=== PATIENT | female | born 1975 | race Caucasian/White ===

== ENCOUNTER 2020-04-10 07:06 | Outpatient (CLI) | payer BC, SELFPAY ==
[2020-04-10 07:56] LABS: Partial Thromboplastin Time 28.4 SECONDS (22.3-36.8)
[2020-04-10 08:12] LABS: Alanine Aminotransferase 21 U/L (4-35); Albumin Level 3.9 g/dL (3.5-5.1); Alkaline Phosphatase 78 U/L (38-126); Amylase 62 U/L (30-110); Anion Gap 8 mmol/L (8-16); Aspartate Amino Transferase 23 U/L (14-36); Bilirubin,Total 0.5 mg/dL (0.2-1.3); Blood Urea Nitrogen 12 mg/dL (7-17); Calcium 9.2 mg/dL (8.4-10.2); Carbon Dioxide 25 mmol/L (22-30); Chloride 106 mmol/L (98-107); Estimated Glomerular Filt Rate > 60; Glucose 91 mg/dL (65-105); Lipase 72 U/L (23-300); Potassium 3.9 mmol/L (3.4-5.0); Sodium 139 mmol/L (137-145)
== END 2020-04-10 07:07 | disposition home or self-care (01) ==
PROVIDERS: PCP Family Medicine; Visit Provider Surgery
DX: Z01.818 Encounter for other preprocedural examination (principal); K80.10 Calculus of gallbladder with chronic cholecystitis without obstruction
CPT/HCPCS: 36415; 80053; 82150; 82248; 83690; 85730; 86850; 86880; 86900; 86901; 86902; 86922

== ENCOUNTER 2020-04-13 02:03 | Day surgery (SDC) | payer BC, SELFPAY ==
[2020-04-06 11:24] VITALS: BMI 34.8
--- NOTE | 2020-04-12 10:37 | WPDANESEPPF ---
Anes - Initial Pre Proc Eval Procedure: Operation Date: 04/13/20 12:00 Proposed Procedures p Laparoscopic Cholecystectomy With Intraoperative Cholangiogram - Dre Tapia MD Date/Time: 04/12/20 10:37 Surgeon: Dre Tapia MD Pre Op Diagnosis: Choledolcholithiasis With Chronic Cholecystitis Patient Data Age: 44 Gender: F Height: 1.68 m Weight: 98 kg Allergies Allergy/AdvReac Type Severity Reaction Status Date / Time monosodium glutamate Allergy Mild Dizziness Verified 04/06/20 11:20 shellfish derived Allergy Mild Swelling Verified 04/06/20 11:20 of Lip/Tongue/Throat Sulfa (Sulfonamide Allergy Mild Palpitation Verified 04/06/20 11:20 Antibiotics) s sulfamethoxazole Allergy Mild palpitation Verified 04/06/20 11:20 [From Bactrim] s trimethoprim [From Bactrim] Allergy Mild palpitation Verified 04/06/20 11:20 s soy AdvReac Mild Dizziness Verified 04/06/20 11:20 Home Medications Medication Instructions Recorded Confirmed Type albuterol sulfate 2 puff INHALATION QID PRN #8 gm 02/22/19 04/06/20 Rx levothyroxine 88 mcg PO QAM 02/22/19 04/06/20 History Patient hx anesthesia problems: none Family hx anesthesia problems: none PMFSH Past Medical History Medical History Asthma History of blood transfusion Thyroid disease Surgical History Surgical History H/O pelvic surgery History of x2 History of colonoscopy History of ERCP Family History Family History Father Hypertension Hypothyroidism Diabetes mellitus Lung cancer Mother Heart disease Sibling Hyperthyroidism Other Diabetes mellitus Heart disease Cancer Social History Social History Smoking status: Never smoker Alcohol intake: never Alcohol use details: SOCIAL DRINKER IN PAST Substance use: never Living arrangements: with family Additional living arrangements comments: AND CHILDREN 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 Gender identity (if verbalized by the patient): Female Spiritual care concerns: No Anes - Eval Final PreProcedure Day of Procedure 04/12/20 10:37 Patient weight: obese Heart: regular rate and rhythm Lungs: clear to auscultation and normal air movement Airway: Mallampati scale class II Neurological: alert and oriented Last oral intake: >/= 8 hours ASA classification: III Emergent: no Anesthetic plan: proceed Anesthesia type and monitoring: general ETT and standard monitoring Informed Consent: The patient's anesthetic plan and its attendant risks and benefits were discussed with the patient/family/POA. Questions were solicited and answers provided to the satisfaction of the patient/family/POA.
[2020-04-13] VITALS (8 sets, daily range): BP systolic 105–115; BP diastolic 50–70; PULSE 45–79; RESP 12–18; TEMP 36–36.7; O2SAT 98–100; BMI 33.4
--- NOTE | ~2020-04-13 | XR_ITS ---
EXAMINATION: XR cholangiogram surg 1st inj DATE: 04/13/2020 13:02 INDICATION: Cholelithiasis. TECHNIQUE: 187 fluoroscopic images of the right upper quadrant were obtained during intraoperative ch olangiography performed by the surgeon. I was not present in the operating room. Fluoroscopy exposure time was 28 seconds. COMPARISON: CT abdomen and pelvis 08/08/2013 FINDINGS: There is a catheter in the cystic duct. The common bile duct is normal in caliber. The comm on hepatic duct is not opacified. Contrast passes to the duodenum. No choledocholithiasis. IMPRESSION: 1. No choledocholithiasis. Reviewed, dictated and finalized at location A. G[employer] IMPRESSION: 1. No choledocholithiasis.
--- NOTE | 2020-04-13 07:54 | WPDHPUPDATE1 ---
History and Physical Update Update Date/Time: 04/13/20 07:54 History and Physical has been reviewed, including an updated exam of the patient. There are NO changes in the patient's condition. Risks, benefits, and alternatives have been discussed and questions answered. Patient agrees to proceed with procedure.
[2020-04-13] MEDS: KETOROLAC 15 MG/ML VIAL (*BKC) IV PUSH (11:16)
[2020-04-13] MEDS: ACETAMINOPHEN 500 MG TABLET 1000 MG PO (11:16)
[2020-04-13] MEDS: LACTATED RINGERS 1,000 ML 30 ML IV CONT (11:17)
[2020-04-13 11:30] LABS: Amylase 60 U/L (30-110)
[2020-04-13] MEDS: ceFAZolin 2 GM/D5W 50 ML 2 GM/50 ML BAG IVPB (11:59)
[2020-04-13] MEDS: BUPIVACAINE HCL 0.5% PF 30 ML VIAL INFILTRATE (12:32)
--- NOTE | 2020-04-13 13:03 | P.OP_ITS ---
Procedure Note - Detailed Date of procedure: 04/13/20 Pre-op diagnosis: Choledolcholithiasis With Chronic Cholecystitis Choledocholithiasis with chronic cholecystitis Post-op diagnosis: same Procedure performed: Laparoscopic cholecystectomy with intraoperative cholangiogram. Description of procedure: The patient was taken to surgery and induced into general anesthesia. The abdomen was prepped and draped. Trocars were placed in the usual fashion using 0.5% Marcaine with epinephrine and applied Medical optical trocars. A 5 millimeter camera was used. There were multiple stones in the gallbladder. The gallbladder was retracted anterosuperiorly. We exposed the cholecystohepatic triangle and dissected out the cystic duct and cystic artery.The gallbladder was dissected off the liver at its lower 3rd. Critical view was achieved. The cystic artery was securely clipped and divided. Cystic duct was dissected through most of its length. The cystic duct was clipped at the distal gallbladder. A small incision was made in the upper cystic duct with cystic duct scissors. The cholangiogram catheter was passed into the cystic duct. We then brought the C-arm fluoroscopy into the field. Intraoperative cholangiograms were done with C-arm fluoroscopy. The cholangiogram catheter would only pass into the upper most aspect of the cystic duct and there was some spillage of contrast. Because the patient had an ERCP just 3 weeks ago, this cholangiogram was marginal but sufficient. The common bile duct was well seen. There was prompt duodenal filling and no evidence of common bile duct filling defects. The radiologist, Dr. French, reviewed the cholangiogram and we discussed this via conference call in the operating room. The cholangiogram catheter was removed from the cystic duct. The cystic duct was then securely clipped and divided. The gallbladder was then dissected free of its peritoneal attachments to the liver. Once completely freed, it was placed in an Endo-Catch bag and retrieved through the 10 11 epigastric trocar. The epigastric trocar was then replaced. We reviewed the right upper quadrant and gallbladder fossa. It was irrigated and suctioned repeatedly. All looked good with no evidence of bleeding or bile leakage. All skin wounds were closed with subcuticular 4 O Monocryl skin suture. The wounds were dressed with Exofin surgical adhesive. The patient transferred to recovery in good condition. Sponge and needle counts were correct x2. Anesthesia: GETA and local (0.25% Marcaine with epinephrine) Surgeon: Dre Tapia MD Logistic Specialist: Param GARRIDO Estimated blood loss (mL): 10 Drains: No Packing: No Pathology: yes (Gallbladder) Complications: None Condition: stable Disposition: PACU Findings: Chronic inflammation and several stones in the gallbladder. Intraoperative cholangiogram was negative. No biliary ductal dilatation or liver abnormalities were appreciated.
== END 2020-04-13 15:10 | disposition home or self-care (01) ==
PROVIDERS: PCP Family Medicine; Visit Provider Surgery
PROC: 0FT44ZZ Resection of Gallbladder, Percutaneous Endoscopic Approach (ICD-10-PCS; CPT 47562; principal; 2020-04-13 12:00)
DX: K80.10 Calculus of gallbladder with chronic cholecystitis without obstruction (principal); J45.909 Unspecified asthma, uncomplicated; E03.9 Hypothyroidism, unspecified; E66.9 Obesity, unspecified; Z68.33 Body mass index [BMI] 33.0-33.9, adult
CPT/HCPCS: 47563; 36415; 74300; 82150; 88304; A9270; C1713; J0690; J1100; J1885; J2250; J2405; J2704; J2710; J3010; J7120; Q9966

== ENCOUNTER → 2021-03-22 16:29 | Outpatient (CLI) | payer BC, SELFPAY ==
--- NOTE | ~2021-03-22 | MM_ITS ---
EXAMINATION: MM screening julieth BI w amando HISTORY: Screening mammogram TECHNIQUE: Craniocaudal and mediolateral oblique 3-D tomosynthesis images were obtained and synthetic 2-D images were generated. CAD analysis was submitted and interpreted. COMPARISON: 01/29/2019, 02/14/2017 bilateral screening mammogram examinations BREAST PARENCHYMAL COMPOSITION: There are scattered areas of fibroglandular density. FINDINGS: There is no evidence of suspicious mass, calcification, or architectural distortion to sugg est malignancy in either breast. There has been no suspicious interval change. IMPRESSION: 1. No mammographic evidence of malignancy. 2. Recommend routine screening mammography in one year. BI-RADS Category 1: Negative Reviewed, dictated and finalized at location A. ING END STITCHER
== END ==
PROVIDERS: Visit Provider Obstetrics & Gynecology Gynecologic Oncology
DX: Z12.31 Encounter for screening mammogram for malignant neoplasm of breast (principal)
CPT/HCPCS: 77063; 77067

== ENCOUNTER → 2021-06-20 11:10 | Outpatient (CLI) | payer BC, SELFPAY ==
--- NOTE | ~2021-06-20 | US_ITS ---
US abdomen limited INDICATION: Epigastric pain and bloating PROCEDURE: Realtime right upper abdominal ultrasound. COMPARISON: No prior studies for comparison. FINDINGS: The pancreas is normal without focal mass or pancreatic ductal dilation. Liver echotexture is increased, consistent with fatty infiltration. There is normal directional flow in the portal ve in. Gallbladder is surgically absent. Common bile duct measures 5 mm. No sonographic Toth's sign. IMPRESSION: 1: Hepatic steatosis. Reviewed, dictated and finalized at location B. IMPRESSION: 1: Hepatic steatosis.
== END ==
PROVIDERS: PCP Family Medicine; Visit Provider Surgery
DX: K76.0 Fatty (change of) liver, not elsewhere classified (principal)
CPT/HCPCS: 76705

== ENCOUNTER 2021-08-31 01:07 | Day surgery (SDC) | payer BC, SELFPAY ==
[2021-08-29 14:54] VITALS: BMI 36.3
--- NOTE | 2021-08-29 15:39 | PC.NURSE ---
Report to the Outpatient Waiting Room, entrance under the green pavilion located off [facility], at time _1000 on date _08/31/21 . OR Time: __1200 . IF YOUR SURGERY TIME IS CHANGED, YOU WILL BE NOTIFIED ON Sunday08/30/21 AFTERNOON - You and your visitor will be asked a series of questions to screen for COVID 19 for your protection. - Only one visitor is allowed at this time. - The patient visitor is requested to leave or wait in car when not with patient. - A mask is required within the hospital. Patients may have clear liquids (water, carbonated beverages, clear teas, apple juice) until 3 hours prior to surgery with a maximum of 20 ounces. - No food from midnight until time of surgery - Infants may have breast milk until 4 hours before surgery, formula 6 hours prior to surgery. - Children will be allowed to drink immediately following surgery. If applicable, please bring a bottle or sippy cup to assist with drinking. Juice, water, soda, and popsicles are readily available. For infants on formula, please bring formula the day of surgery. Pacifiers are allowed. Take the following medications with a SIP of water the morning of surgery: _LEVOTHYROXINE Medications to discontinue per physician ___PROBIOTICS Date to take last dose 08/29/21 Please no make-up, nail thai, hairspray, perfume, deodorant, or body powder the day of surgery. No jewelry (including any body piercings) or valuables the day of surgery, leave them at home. Please take a shower or bath the night before, or the morning of, surgery with an antibacterial soap. Wear comfortable, loose fitting clothing. - Jewelry must be removed prior to entering the operating room. Rings and piercings that are not removed may be cut off. - The hospital will not accept responsibility for valuables. - Please leave all valuables, including medications, at home the day of surgery. If you are going home after surgery, a licensed cdl truck driver must drive you home. - NO public transportation without another adult. - We recommend that an adult stay with you for 24 hours following discharge. - We also recommend that you do not drive, make important decision, drink alcoholic beverages, or take any drugs that were not prescribed by your health care provider for at least 24 hours after your discharge time. Follow any additional instructions given to you from your surgeon. If you or anyone in your household have experienced Covid symptoms in the past week, please notify your surgeon or the nurse liaison at the phone number below for possible testing. Telephone instructions given to _ZIA and asked if any additional questions and then verbalized understanding. Patient advised to call surgeon office or pre surgery nurse liaison [phone] if any additional questions.
--- NOTE | 2021-08-30 12:04 | PM.SD2 ---
Same Day Admit/Disch: HPI History of Present Illness Chief complaint: Umb Hernia Narrative: Angelic Zayas is a 45 year old female Who gave in 2018. Soon after that she developed an umbilical bulge. This has persisted and in fact is painful at times. She was seen in the office and found to have a reducible umbilical hernia. She is taken to surgery now for umbilical hernia repair with mesh. REPLACED BY [facility] Past Medical History Medical History Asthma History of blood transfusion Thyroid disease Surgical History Surgical History H/O pelvic surgery History of x2 History of cholecystectomy History of colonoscopy History of ERCP Family History Family History Father Hypertension Hypothyroidism Diabetes mellitus Lung cancer Mother Heart disease Sibling Hyperthyroidism Other Diabetes mellitus Heart disease Cancer Social History Social History Smoking status: Never smoker Alcohol intake: former Alcohol use details: SOCIAL DRINKER IN PAST Substance use: never Substance use type: does not use Additional living arrangements comments: AND CHILDREN 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 Gender identity (if verbalized by the patient): Female Spiritual care concerns: No Same Day Admit/Disch: Med Pre-admit Medications Home Medications Medication Instructions Recorded Confirmed Type albuterol sulfate 90 mcg/actuation 2 puff inhalation QID PRN 02/22/19 08/31/21 Rx aerosol inhaler shortness of breath or wheezing #8 grams levothyroxine 88 mcg tablet 88 mcg PO QAM 02/22/19 08/31/21 History lactobacillus combination no.4 3 3,000 mmu cells PO DAILY 06/13/21 08/31/21 History billion cell capsule (Probiotic) hydrocodone 5 mg-acetaminophen 325 1 - 2 tablet PO Q6H PRN pain #15 08/31/21 Rx mg tablet tabs ketorolac 10 mg tablet 10 mg PO Q6H 4 days #16 tabs 08/31/21 Rx Exam Const: General: comfortable, no acute distress, alert and awake HENMT: Head: normocephalic and atraumatic Mouth: Yes Normal oral and palatal mucosa present Eyes: Conjunctivae: conjunctivae normal Pupils: Equal, round and reactive pupils present EOM: EOMs intact bilaterally Neck: Neck: normal visual inspection, no lymphadenopathy and nontender Resp: Effort & Inspection: normal respiratory effort Auscultation: clear to auscultation bilaterally Cardio: Rate: regular rate Rhythm: regular rhythm Heart sounds: no gallops, no murmurs and no rubs GI: Inspection: non-distended, scar ( laparoscopic cholecystectomy scars) and visible herniation ( Umbilical) GI Palp: Yes Soft to palpation, No Tenderness to palpation present (GI), No Hepatomegaly present, No Splenomegaly present and Yes Hernia present ( reducible umbilical hernia, nontender) Auscultation: normal bowel sounds Skin: Lesions: no lesions Rashes: no rashes Neuro: General: no focal motor deficits and CN's II-XI intact bilaterally Cranial nerves: Yes Equal, round and reactive pupils present, Yes Bilaterally intact EOM present, Yes facial symmetry and Yes Midline tongue present Speech: normal speech Motor exam (neuro): 5/5 motor strength present throughout and Motor abnormalities not present Extrem: General: no clubbing, cyanosis or edema and edema Psych: Affect: normal affect Thought process: Normal thought process present Insight: Good insight present (Psych) DS: Summary Time Spent with Patient Time attestation: Total time spent providing and/or coordinating discharge services: DS: Admitting Diagnosis Discharge Date 08/31/21 Admitting Diagnosis reducible umbilical hernia - plan to proceed with repair under anesthesia with mesh as an outpatient. The procedure the risks the benefits have been
[2021-08-31 11:12] VITALS: BP 126/69; PULSE 63; RESP 16; TEMP 36.3; O2SAT 100
--- NOTE | 2021-08-31 11:17 | WPDHPUPDATE1 ---
History and Physical Update Update Date/Time: 08/31/21 11:17 History and Physical has been reviewed, including an updated exam of the patient. There are NO changes in the patient's condition. Risks, benefits, and alternatives have been discussed and questions answered. Patient agrees to proceed with procedure.
--- NOTE | 2021-08-31 11:30 | WPDANESEPPF ---
Anes - Initial Pre Proc Eval Procedure: Operation Date: 08/31/21 12:00 Proposed Procedures p Umbilical Hernia Repair with Mesh - Dre Tapia MD Date/Time: 08/31/21 11:30 Surgeon: Dre Tapia MD Pre Op Diagnosis: Umb Hernia Patient Data Age: 45 Gender: F Height: 1.68 m Weight: 105.3 kg Last Vital Signs Temp 36.3 C L 08/31/21 11:12 Pulse 63 08/31/21 11:12 Resp 16 08/31/21 11:12 BP 126/69 08/31/21 11:12 Pulse Ox 100 08/31/21 11:12 O2 Del Method Room Air 08/31/21 11:12 Allergies Allergy/AdvReac Type Severity Reaction Status Date / Time monosodium glutamate Allergy Mild Dizziness Verified 08/31/21 11:05 shellfish derived Allergy Mild Swelling Verified 08/31/21 11:05 of Lip/Tongue/Throat Sulfa (Sulfonamide Allergy Mild Palpitation Verified 08/31/21 11:05 Antibiotics) s sulfamethoxazole Allergy Mild palpitation Verified 08/31/21 11:05 [From Bactrim] s trimethoprim [From Bactrim] Allergy Mild palpitation Verified 08/31/21 11:05 s soy AdvReac Mild Dizziness Verified 08/31/21 11:05 Home Medications Medication Instructions Recorded Confirmed Type albuterol sulfate 90 mcg/actuation 2 puff inhalation QID PRN 02/22/19 08/31/21 Rx aerosol inhaler shortness of breath or wheezing #8 grams levothyroxine 88 mcg tablet 88 mcg PO QAM 02/22/19 08/31/21 History lactobacillus combination no.4 3 3,000 mmu cells PO DAILY 06/13/21 08/31/21 History billion cell capsule (Probiotic) Patient hx anesthesia problems: none Family hx anesthesia problems: none Results Review: All pre-operative results and documents have been reviewed as part of the pre-operative evaluation. [facility] Past Medical History Medical History Asthma History of blood transfusion Thyroid disease Surgical History Surgical History H/O pelvic surgery History of x2 History of cholecystectomy History of colonoscopy History of ERCP Family History Family History Father Hypertension Hypothyroidism Diabetes mellitus Lung cancer Mother Heart disease Sibling Hyperthyroidism Other Diabetes mellitus Heart disease Cancer Social History Social History Smoking status: Never smoker Alcohol intake: former Alcohol use details: SOCIAL DRINKER IN PAST Substance use: never Substance use type: does not use Additional living arrangements comments: AND CHILDREN 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 Informed Consent: The patient's anesthetic plan and its attendant risks and benefits were discussed with the patient/family/POA. Questions were solicited and answers provided to the satisfaction of the patient/family/POA.
[2021-08-31] MEDS: ACETAMINOPHEN 500 MG TABLET 1000 MG PO (11:49)
[2021-08-31] MEDS: LACTATED RINGERS 1,000 ML 30 ML IV CONT ×2 (11:54→13:53)
[2021-08-31] MEDS: KETOROLAC 15 MG/ML VIAL (*BKC) IV PUSH (11:55)
[2021-08-31] MEDS: ceFAZolin 2 GM/D5W 50 ML 2 GM/50 ML BAG IVPB (12:06)
[2021-08-31 13:53] VITALS: BP 97/52; PULSE 58; RESP 12; O2SAT 94
--- NOTE | 2021-08-31 14:12 | W.PM.PROC2 ---
Procedure Note - Detailed Date of Procedure 08/31/21 Pre-op Diagnosis Umbilical hernia Post-op Diagnosis Other (Incisional hernia) Procedure Performed Repair ventral incisional hernia with [address] underlay hernia mesh Surgeon Dre Tapia MD Outside Salesman Rima Preciado PROCESS PLANNER Anesthesia General (G IV S) and Local Indications Patient is a 45-year-old woman with a intermittently painful reducible umbilical hernia. She is taken to surgery now for repair with mesh Findings There was a hernia defect associated with the laparoscopic trocar placement for her a cholecystectomy done previously. This was an incisional hernia and was adjacent to the umbilical hernia such that the incisional hernia was the larger of the 2. There was also a thin fascial bridge between the 2 defects. This resulted in a much larger hernia defect that was appreciated on exam. Larger piece of Ventralex ST mesh, the 8 cm size, was required for repair. Description of Procedure Patient was checked in the preoperative holding area. She was then taken to the operating room and anesthesia was introduced. The abdomen is prepped and draped. The proposed infraumbilical curved incision was marked on the skin. Local anesthetic was infiltrated in the area of the anticipated incision and in the subcutaneous tissue. Incision was made dissection was carried down through the subcutaneous. The umbilical hernia was found we dissected down to the fascia in the area of the umbilical hernia. I then dissected around the umbilical stalk. It was noted in the left cephalad area near the hernia there was a 2nd incisional hernia most likely from the gallbladder trocar site. I dissected around the umbilical hernia stalk and then dissected the hernia sac free from the fascia. I then dissected around the incisional hernia as well. There was only a small skin fascial bridge between the 2. I divided this. This resulted in a larger hernia that was 3 by 3-1/2 cm. I dissected around this hernia defect circumferentially. I undermined the subcutaneous around the hernia defect. I infiltrated additional local into the fascial edges around the hernia defect. The 2 hernia sacs were dissected from the fascia as well as dissected off the umbilical skin. Both hernia sacs were discarded. I chose an [address] mesh t[place] river. This was placed in the underlay position. I then used multiple 0 Ethibond transfascial sutures to draw the edges of the hernia defect to 1 another while suturing fascia to the Ventralex ST mesh. About 6 such sutures were placed. When each of these was tied down, it secured the mesh to the abdominal wall fascia leaving a somewhat irregular defect yet to close. I cut the straps to the Ventralex ST mesh. I then use a [id number] mattress sutures of 0 Ethibond to close the remainder of the hernia defect over the mesh. Each of these sutures also incorporated a bit of mesh. This completed repair of the hernia defect and securing the mesh to the abdominal wall. The repair looked good. I infiltrated additional local all around the area of the repair. I then used a 3-0 Vicryl and sutured the umbilical skin to the fascia, inverting the umbilicus. I then closed the deeper subcutaneous with interrupted 3-0 Vicryl suture. Some more superficial interrupted 3-0 Vicryl sutures were placed. 3-0 and 4-0 subcuticular interrupted skin suture of Vicryl were then placed. The skin was finally closed with a running 4-0 Monocryl skin suture. The wound was dressed with Exofin surgical adhesive. Patient was awakened and taken to recovery in good condition. Sponge and needle counts were correct x2. Implants [address] mesh Estimated Blood Loss 10 Drains No Packing No Pathology None sent Complications No immediate complications Condition Stable Disposition Same day [facility] Billing Surgery - Charge Forward: Surgery Billing (Repair ventral incisional hernia with mesh)
[2021-08-31 14:15] VITALS: BP 97/52; PULSE 58; RESP 20
[2021-08-31 14:45] VITALS: BP 95/58; PULSE 58; RESP 20
== END 2021-08-31 15:01 | disposition home or self-care (01) ==
PROVIDERS: PCP Family Medicine; Visit Provider Surgery
PROC: (CPT 49560; principal; 2021-08-31 12:00)
DX: K43.2 Incisional hernia without obstruction or gangrene (principal); J45.909 Unspecified asthma, uncomplicated; E07.9 Disorder of thyroid, unspecified; Z79.51 Long term (current) use of inhaled steroids; E66.9 Obesity, unspecified; Z68.37 Body mass index [BMI] 37.0-37.9, adult
CPT/HCPCS: 49560; 49568; A9270; C1781; J0690; J1100; J1885; J2250; J2405; J2704; J3010; J7030; J7120

== ENCOUNTER 2021-08-31 10:17 | Outpatient (CLI) | payer BC, SELFPAY ==
[2021-08-31 10:55] LABS: EDCOVIDSCREEN Negative (Negative)
== END 2021-08-31 10:18 | disposition home or self-care (01) ==
PROVIDERS: PCP Family Medicine; Visit Provider Surgery
DX: R09.89 Other specified symptoms and signs involving the circulatory and respiratory systems (principal); Z20.822 Contact with and (suspected) exposure to COVID-19
CPT/HCPCS: 36415; 87426; C9803

== ENCOUNTER → 2022-02-06 10:33 | Outpatient (CLI) | payer BC, SELFPAY ==
--- NOTE | ~2022-02-06 | XR_ITS ---
EXAMINATION: XR chest 2V DATE: 02/06/2022 10:54 INDICATION: Right-sided breast tenderness TECHNIQUE: PA and lateral views of the chest were obtained. COMPARISON: Chest radiograph dated 09/27/2012 FINDINGS: The lungs are clear with no focal airspace opacities, pulmonary edema, pleural effusion or pneumothor ax. The cardiomediastinal silhouette is normal. Mild thoracic spondylosis. IMPRESSION: 1. No acute cardiopulmonary disease. Reviewed, dictated and finalized at location B.
== END ==
PROVIDERS: PCP Family Medicine; Visit Provider Pediatrics
DX: N64.4 Mastodynia (principal); R21 Rash and other nonspecific skin eruption
CPT/HCPCS: 71046

== ENCOUNTER → 2022-02-08 12:20 | Outpatient (CLI) | payer BC, SELFPAY ==
--- NOTE | ~2022-02-08 | MMUS_ITS ---
EXAMINATION: MM diagnostic julieth BI w amando, US breast LT limited HISTORY: Breast tissue changes noted by patient, lower inner left breast TECHNIQUE: Full field and spot ML, MLO and CC 3-D tomosynthesis images of both breasts were performed and synthetic 2-D images were generated. CAD analysis was submitted and interpreted. High resolution targeted lower inner left breast ultrasound at area of clinical complaint was performed. COMPARISON: 03/22/2021, 01/29/2019, 02/14/2017 bilateral screening mammogram examinations BREAST PARENCHYMAL COMPOSITION: There are scattered areas of fibroglandular density. FINDINGS: MAMMOGRAPHIC FINDINGS: An approximately 8 cm ill-defined area of asymmetric density is noted in the lower mid left breast. No other suspicious mass or architectural distortion, malignant calcification, skin thickening or ret raction or significant new or developing density of either breast is detected. ULTRASOUND: At 6:00 4 cm from the nipple there is an irregular anti parallel hypoechoic area with some posterior shadowing, measuring up to approximately 7.3 mm depth, 5.8 mm width. Ultrasound-guided biopsy is deandre mmended. At 6:00 5 cm from the nipple there is an approximately 2.9 x 3.7 mm sonolucent area. Attempted ultras ound-guided aspiration is recommended, with biopsy if this lesion does not resolve with aspiration. IMPRESSION: 1. Suspicious irregular antiparallel hypoechoic shadowing approximately 7.3 x 5.8 mm lesion at 6:00 4 cm from nipple; ultrasound-guided biopsy is recommended. 2. Approximately 2.9 x 3 x 7 mm sonolucency at 6:00 5 cm from nipple; ultrasound-guided aspiration is recommended, with biopsy if this does not resolve with aspiration BI-RADS category 4, suspicious findings. Dr. French telephoned the report and ultrasound aspiration and biopsy recommendations of the left ruddy t on 02/08/2022 at 1430 hours to Nurse Calabrese Reviewed, dictated and finalized at location A. IMPRESSION: 1. Suspicious irregular antiparallel hypoechoic shadowing approximately 7.3 x 5 .8 mm lesion at 6:00 4 cm from nipple; ultrasound-guided biopsy is recommended. 2. Approximately 2.9 x 3 x 7 mm sonolucency at 6:00 5 cm from nipple; ultrasoun d-guided aspiration is recommended, with biopsy if this does not resolve with a spiration BI-RADS category 4, suspicious findings. Dr. French telephoned the report and ultrasound aspiration and biopsy recommendat ions of the left breast on 02/08/2022 at 1430 hours to Nurse Calabrese
== END ==
PROVIDERS: PCP Family Medicine; Visit Provider Nurse Practitioner Women's Health
DX: N64.59 Other signs and symptoms in breast (principal); R92.8 Other abnormal and inconclusive findings on diagnostic imaging of breast
CPT/HCPCS: 76642; 77062; 77066; G0279

== ENCOUNTER 2022-02-23 08:51 | Outpatient (CLI) | payer BC, SELFPAY ==
--- NOTE | ~2022-02-23 | MMUS_ITS ---
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 Ultrasound-guided core biopsy is re quested to evaluate for malignancy. TECHNIQUE AND FINDINGS: The risks and potential benefits of the procedure were discussed with the patient, and written inform ed consent was obtained. After sterile preparation of the left breast, 1% lidocaine was utilized for local anesthesia. 1% lidocaine with epinephrine was used for deep anesthesia. A 10G vacuum-assisted biopsy gun needle was advanced through to the outer edge of the region of inter est from a inferior approach utilizing sonographic guidance. A total of 4 tissue core samples were o btained through the lesion. An Inrad tissue marker clip was then placed at the biopsy site. Hemostas is was achieved. The patient tolerated procedure well and there was no evidence of immediate complication. The patien t was given verbal instructions partly is from the department. Left breast mammograms to document ti ssue marker clip placement. The tissue samples were submitted to surgical pathology for histologic an alysis. IMPRESSION: 1. Successful ultrasound-guided vacuum-assisted biopsy of left breast mass with tissue marker placem ent. Please refer to pathology report for histologic analysis. Reviewed, dictated and finalized at location A. YSIS SOCIAL WORKER IMPRESSION: 1. Successful ultrasound-guided vacuum-assisted biopsy of left breast mass wit h tissue marker placement. Please refer to pathology report for histologic anal ysis.
--- NOTE | ~2022-02-23 | US_ITS ---
EXAMINATION: US breast cyst asp LT DATE: 02/23/2022 10:46 VISE HAND INDICATION: Cystic lesion of the left breast at 6:00, 5 cm from the nipple. Aspiration recommended. TECHNIQUE: Survey imaging of the left breast was performed. The cyst(s) at the 6:00 position, 5 cm f rom the nipple was targeted for aspiration. The procedure and its risk and benefits were discussed w ith the patient. Risks included but were not limited to pain, bleeding and infection. The patient ve rbalized understanding and provided written consent. A time-out was performed to document the patient's name, date of , and site of procedure. The lo wer aspect of the patient's left breast was prepped and draped in usual sterile fashion. 1% lidocain e was used for local anesthesia. Utilizing ultrasound guidance, a 18-gauge needle was advanced into the lesion in the 4 mm cyst. Aspiration was performed. Clear fluid was obtained from the lesion whic h disappeared following aspiration. The patient tolerated procedure without immediate complication. Sterile bandages were applied over t he aspiration site(s).] FINDINGS: Successful aspiration of 4 mm left breast cysts. IMPRESSION: 1. Successful ultrasound-guided aspiration of left breast cyst at 6:00, 5 cm from the nipple with co mplete resolution of the cyst following aspiration. Clear fluid obtained without complication. Reviewed, dictated and finalized at location A. HAND IMPRESSION: 1. Successful ultrasound-guided aspiration of left breast cyst at 6:00, 5 cm f rom the nipple with complete resolution of the cyst following aspiration. Clear fluid obtained without complication.
== END 2022-02-23 08:52 | disposition home or self-care (01) ==
PROVIDERS: PCP Family Medicine; Visit Provider Surgery
DX: R92.8 Other abnormal and inconclusive findings on diagnostic imaging of breast (principal)
CPT/HCPCS: 19000; 19083; 88305; A4648

== ENCOUNTER → 2022-04-07 12:40 | Outpatient (CLI) | payer BC, SELFPAY ==
--- NOTE | ~2022-04-07 | CT_ITS ---
EXAMINATION: CT abdomen pelvis w con INDICATION: Left upper quadrant pain TECHNIQUE: Computed tomographic images of the abdomen and pelvis were obtained after the administrati on of 100 cc of Omnipaque 350 intravenous contrast. The dose-length product (DLP) was 1011.90 mGy-cm. Automated exposure control and iterative reconstruction technique were employed. COMPARISON: 08/08/2013 FINDINGS: The lung bases are clear. The heart size is normal. The gallbladder is surgically absent. T he liver, spleen, pancreas, and adrenal glands are normal. The kidneys are unremarkable. No pathologi tobi enlarged abdominal or pelvic lymph nodes are identified. There is no free intraperitoneal gas o r evidence of bowel obstruction. There is a small ventral hernia to the right of midline containing f at located just superior to the umbilicus. Orthopedic stabilization hardware is noted in the left pel vis. IMPRESSION: 1. Small fat-containing ventral hernia to the right of midline and just superior to the umbilicus. Reviewed, dictated and finalized at location B. 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 Small fat-containing ventral hernia to the right of midline and just superio r to the umbilicus.
== END ==
PROVIDERS: PCP Family Medicine; Visit Provider Surgery
DX: R10.12 Left upper quadrant pain (principal); R19.02 Left upper quadrant abdominal swelling, mass and lump; K43.9 Ventral hernia without obstruction or gangrene
CPT/HCPCS: 74177; Q9967

== ENCOUNTER 2023-02-08 13:32 | Outpatient (CLI) | payer BC, SELFPAY ==
--- NOTE | 2023-02-08 | ECHO_ITS ---
Patient Info Name: Angelic Zayas Age: 47 years : 1975 Gender: Female Ht: 66 in Wt: 223 lbs BSA: 2.21 m2 HR: 62 bpm BP: 114 / 80 mmHg Heart Rhythm: Sinus Rhythm Technical Quality: Good Exam Date: 02/08/2023 2:02 PM Exam Location: Echo Lab Patient Status: Outpatient Admit Date: 02/08/2023 Staff Ordering Physician: Jolene Trujillo MD Chamber Magistrate: Beau Xavier RDCS Attending Provider: Jolene Trujillo MD Referring Physician: Cassandra ANNA; Exam Type: CA echo doppler color flow Study Info Indications - murmur Complete two-dimensional, color flow and Doppler transthoracic echocardiogram is performed. Summary 1. Complete two-dimensional, color flow and Doppler transthoracic echocardiogram is performed. 2. Left ventricular chamber dimension is normal. 3. Left ventricular systolic function is normal, estimated at 60-65%. 4. The left ventricular diastolic function is abnormal. 5. E/e' 12 is mildly elevated. 6. There is mild aortic valve sclerosis. 7. No pulmonary hypertension, estimated pulmonary arterial systolic pressure is 14 mmHg. Left Ventricle E/e' 12 is mildly elevated. Left ventricular chamber dimension is normal. Left ventricular systolic function is normal, estimated at 60-65%. The left ventricular diastolic function is abnormal. Right Ventricle Right ventricular systolic function is normal and with normal TAPSE 2.2 cm. Right ventricular chamber dimension is normal. Left Atria Left atrial chamber dimension is normal. Right Atria Right atrial chamber dimension is normal. Aortic Valve The aortic valve is not well visualized. Cannot determine number of aortic valve leaflets. There is mild aortic valve sclerosis. There is no aortic valve stenosis. There is no aortic valve regurgitation. Pulmonic Valve There is no pulmonic regurgitation. Mitral Valve There is no mitral valve stenosis. There is no mitral valve regurgitation. Tricuspid Valve There is no tricuspid valve regurgitation. No pulmonary hypertension, estimated pulmonary arterial systolic pressure is 14 mmHg. Pericardium/Pleural There is no pericardial effusion. Inferior Vena Cava Normal inferior vena cava with >50% collapse upon inspiration consistent with normal right atrial pressure, 5 mmHg. Aorta The aortic root size at the sinus of Valsalva is normal. Left Ventricular Outflow Tract Name Value Normal LVOT 2D LVOT Diameter 1.9 cm LVOT Doppler LVOT Peak Gradient 4 mmHg LVOT Mean Gradient 3 mmHg LVOT VTI 33 cm LVOT VTI/AV VTI Ratio 1.0 LVOT Stroke Volume 95 ml LVOT CO 5.1 l/min LVOT CI 2.3 l/min/m2 Pulmonic Valve Name Value Normal RVOT Doppler RVOT Peak Gradient 1 mmHg PV Doppler
== END 2023-02-08 13:33 | disposition home or self-care (01) ==
LOC: ANHCARD 13:34
PROVIDERS: PCP Family Medicine; Visit Provider Family Medicine
DX: R01.1 Cardiac murmur, unspecified (principal)
CPT/HCPCS: 93306

== ENCOUNTER → 2023-02-10 07:33 | Outpatient (CLI) | payer BC, SELFPAY ==
--- NOTE | ~2023-02-10 | US_ITS ---
EXAMINATION: US transvaginal DATE: 02/10/2023 08:00 INDICATION: Vaginal bleeding TECHNIQUE: Multiple endovaginal sonographic images of the pelvis were obtained. COMPARISON: 11/10/2016 FINDINGS: The uterus measures 5.4 x 5.3 x 6.0 cm. The endometrial complex measures 10 mm. The ovaries are not visualized however no adnexal abnormality is seen. There is no free fluid in the pelvis. IMPRESSION: 1. Endometrial thickness measuring 10 mm. If the patient is premenopausal, thickness would be conside red normal. If the patient is postmenopausal, finding may be due to hyperplasia, polyp, or malignancy and endometrial sampling would be recommended. Reviewed, dictated and finalized at location F. IMPRESSION: 1. Endometrial thickness measuring 10 mm. If the patient is premenopausal, thic kness would be considered normal. If the patient is postmenopausal, finding may be due to hyperplasia, polyp, or malignancy and endometrial sampling would be recommended.
== END ==
DX: N95.0 Postmenopausal bleeding (principal); R93.89 Abnormal findings on diagnostic imaging of other specified body structures
CPT/HCPCS: 76830

== ENCOUNTER 2023-09-04 14:46 | Emergency (ER) | payer BC, SELFPAY ==
--- NOTE | 2023-09-04 14:57 | ED.EAR ---
HPI - Ear Problem General Chief complaint: Ear Stated complaint: water sensation in ears Time Seen by Provider: 09/04/23 14:57 Source: patient Mode of arrival: ambulatory Limitations: no limitations History of Present Illness HPI Narrative: Angelic is a 47-year-old female patient presenting to the clinic today with complaints of cough and congestion with feeling as though there may be fluid in her ears. She denies any fever, chills, or body aches. States symptoms have been going on for 3 days. She has not taken anything to help alleviate her symptoms. Related Data Home Medications Medication Instructions Recorded Confirmed lactobacillus combination no.4 3 3,000 mmu cells PO DAILY 06/13/21 04/24/22 billion cell capsule (Probiotic) levothyroxine 100 mcg capsule 100 mcg PO DAILY 09/13/21 04/24/22 Allergies Allergy/AdvReac Type Severity Reaction Status Date / Time monosodium glutamate Allergy Mild Dizziness Verified 09/04/23 15:20 shellfish derived Allergy Mild Swelling Verified 09/04/23 15:20 of Lip/Tongue/Throat Sulfa (Sulfonamide Allergy Mild Palpitation Verified 09/04/23 15:20 Antibiotics) s sulfamethoxazole Allergy Mild palpitation Verified 09/04/23 15:20 [From Bactrim] s trimethoprim [From Bactrim] Allergy Mild palpitation Verified 09/04/23 15:20 s soy AdvReac Mild Dizziness Verified 09/04/23 15:20 Review of Systems Review of Systems: Pertinent positives per HPI. Patient denies any fever, chills, rash, headache, visual changes, dizziness, shortness of breath, chest pain, palpitations, nausea, vomiting, diarrhea, constipation, abdominal pain, or any urinary issues. [facility] Past Medical History Medical History Asthma History of blood transfusion Thyroid disease Surgical History Surgical History H/O pelvic surgery History of x2 History of cholecystectomy History of colonoscopy History of ERCP Hx of ventral hernia repair Repair ventral incisional hernia with [address] underlay hernia mesh 08/31/2021 Family History Family History Father Hypertension Hypothyroidism Diabetes mellitus Lung cancer Mother Heart disease Sibling Hyperthyroidism Other Diabetes mellitus Heart disease Cancer Social History Social History Smoking status: Never smoker Alcohol intake: former Alcohol use details: SOCIAL DRINKER IN PAST Substance use: never Substance use type: does not use Living arrangements: with family Additional living arrangements comments: AND CHILDREN Occupation/Education: occupation 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 There is no relevant family history pertinent to the patient complaint. Exam Narrative: General: Well-developed, well nourished, in no apparent distress Head: Normocephalic, atraumatic Eyes: Pupils equally round and reactive to light bilaterally, EOM intact, sclera and conjunctive clear, no discharge, lids normal Ears: TMs intact and congested, ear canals clear, no drainage, grossly hearing normal. Nose: Nares patent, clear nasal discharge, no inflammation, no sinus tenderness. Mouth: Oral pharynx without lesions or masses, good dentition, MMM. Neck: Supple, trachea midline, no enlargement of anterior or posterior cervical nodes, no thyroid masses or goiter palpable. Cardio: Regular rate and rhythm, s1 and s2 normal, no murmur appreciated. Resp: Clear to auscultation bilaterally, no rhonchi, rales, wheezing or rubs Course Cour
[2023-09-04 15:09] VITALS: BP 115/81; PULSE 66; RESP 16; TEMP 35.8; O2SAT 98
== END 2023-09-04 15:20 | disposition home or self-care (01) ==
PROVIDERS: Emergency Provider Nurse Practitioner Family; PCP Family Medicine
DX: J30.89 Other allergic rhinitis (principal); J45.909 Unspecified asthma, uncomplicated; E03.9 Hypothyroidism, unspecified
CPT/HCPCS: 99211; G0463

== ENCOUNTER 2024-06-24 07:48 | Outpatient (CLI) | payer OTHER, SELFPAY ==
--- NOTE | ~2024-06-24 | MM_ITS ---
EXAMINATION: MM screening julieth BI w amando HISTORY: Screening TECHNIQUE: Craniocaudal and mediolateral oblique 3-D tomosynthesis images were obtained and synthetic 2-D images were generated. CAD analysis was submitted and interpreted. COMPARISON: Comparison to multiple prior studies sequentially, with oldest reviewed study dated 01/08. BREAST PARENCHYMAL COMPOSITION: Not dense: There are scattered areas of fibroglandular density. FINDINGS: There is no evidence of suspicious mass, calcification, or architectural distortion to sugg est malignancy in either breast. There has been no suspicious interval change. IMPRESSION: 1. No mammographic evidence of malignancy. 2. Recommend routine screening mammography in one year. BI-RADS Category 1: Negative Reviewed, dictated and finalized at location B.
--- OUTSIDE RECORDS SUMMARY | 2024-06-24 07:56 | XMS_ITS | Patient Health Summary ---
Author Organization [facility] Address [address] [place] [address] Care Team Providers Care Consultative Sales Associate Name Role Phone Jolene Trujillo MD Primary Care Provider + [phone] [facility] [place],non-owned Affiliates and Associated Physician Practices is amultiple site organization consisting of ambulatory clinics and hospital sitesin [place], [place], [place] and [place]. This disclosure is being madepursuant to the Care Everywhere program and may not contain all information available regarding this patient. Last updated 17.[facility] Allergies * Isoflavones(Other) * Shellfish Allergy(Anaphylaxis) -High Criticality * Sulfa Drugs(Palpitations) Medications * Be aware that medications may not be up to date on this document. Alwaysverify current medications with the patient. * levothyroxine (SYNTHROID) 88 MCG tablet Take 88 mcg by mouth daily before breakfast * cyanocobalamin (VITAMIN B-12) 1000 MCG tablet Take 2,000 mcg by mouth once daily * Vit-Fe Fumarate-FA ( VITAMIN) 28-0.8 MG tablet Take 1 tablet by mouth once daily * Probiotic Product (PROBIOTIC + OMEGA-3 PO) * famotidine (PEPCID) 20 MG tablet Take 20 mg by mouth once daily * IRON, FERROUS GLUCONATE, PO Take 1 tablet by mouth once daily * docusate sodium (COLACE) 100 MG capsule Take 100 mg by mouth once daily * calcium carbonate (TUMS) 500 MG chew tablet Take 1 tablet by mouth daily with food * levothyroxine (SYNTHROID) 88 MCG tablet(Started 12/11/2017) Take 1 tablet by mouth daily before breakfast 2 refills remaining * ibuprofen (MOTRIN) 600 MG tablet(Started 12/10/2017) Take 1 tablet by mouth every 6 hours as needed for Pain 2 refills remaining * docusate sodium (COLACE) 100 MG capsule(Started 12/10/2017) Take 1 capsule by mouth 2 times daily 2 refills remaining * polyethylene glycol 3350 (MIRALAX) packet(Started 12/10/2017) Take 17 g by mouth once daily 1 refill remaining Active Problems Problem Noted Date Diagnosed Date Supervision of high-risk of elderly mu ltigravida 06/26/2017 Obesity 06/26/2017 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/26/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 06/26/2017 AMA (advanced maternal age) multigravida 35+ Hypothyroid 06/26/2017 Elderly multigravida in third trimester Anti-D antibodies present in in third trimester Resolved Problems Problem Noted Date Diagnosed Date Resolved Date Abnormal O'Traylor glucose challenge test, antepartum 10/24/2017 11/20/2017 History of pelvic fracture 05/02/2011 0 11/20/2017 Obesity complicating pregnan cy in third trimester 11/20/2017 32 weeks gestation of 11/20/2017 Social History Tobacco Use Types Packs/Day Years Used Date Smoking Tobacco: Never Smokeless Tobacco: Never Alcohol Use Standard Drinks/Week Comments No 0 (1 standard drink = 0.6 oz pur e alcohol) Sex and Gender Information Value Date Recorded Sex Assigned at Not on file Gender Identity Not on file Sexual Orientation Not on file Last Filed Vital Signs Vital Sign Reading Time Taken Comments Blood Pressure 125/79 01/22/2018 2:41 PM CDT Pulse 60 01/22/2018 2:41 PM CDT Temperature 36.4 C (97.6 F) 12/10/2017 9:20 AM CDT Respiratory Rate 18 12/10/2017 9:20 AM CDT Oxygen Saturation 97% 12/09/2017 11:15 PM CDT Inhaled Oxygen Concentration - - Weight 107 kg (236 lb) 01/22/2018 2:41 PM CDT Height 170.2 cm (5' 7 ) 01/22/2018 2:41 PM CDT Body Mass Index 36.96 01/22/2018 2:41 PM CDT Procedures * GLUCOSE - POINT OF CARE(Performed 01/22/2018) * HCG URINE QUALITATIVE - POINT OF CARE(Performed 01/22/2018) Performed for Supervision of high-risk of elderly multigravida ([facility]) * IMAGING/RADIOLOGY/XRAY RESULTS ORDER(Performed 12/13/2017) * GLUCOSE FASTING(Performed 12/08/2017) * SCREEN(Performed 12/07/2017) * RH IMMUNE GLOBULIN WORKUP PANEL(Performed 12/07/2017) * NEURAXIAL BLOCK(Performed 12/06/2017) * CBC W AUTO DIFFERENTIAL(Performed 12/06/2017) * BLOOD GASES CORD JUAN JOSÉ (ISTAT)(Performed 12/06/2017) * BLOOD GASES CORD ART (ISTAT)(Performed 12/06/2017) * PATHOLOGY TISSUE EXAM (STL)(Performed 12/06/2017) Performed for H/O: * SECTION (REPEAT)(Performed 12/06/2017) Performed for H/O: * ANTIBODY IDENTIFICATION(Performed 12/06/2017) Performed for Anti-D antibodies present during in third trimester, single or unspecified fetus ([facility]) * TYPE + SCREEN PANEL(Performed 12/06/2017) Performed for Anti-D antibodies present during in third trimester, single or unspecified fetus ([facility]) * CBC W AUTO DIFFERENTIAL(Performed 12/06/2017) Performed for Anti-D antibodies present during in third trimester, single or unspecified fetus ([facility]) * PREPARE RBC LEUKOREDUCED UNIT(Performed 12/06/2017) * BIOPHYSICAL PROFILE W NST(Performed 11/30/2017) Performed for Anti-D antibodies present during in third trimester, single or unspecified fetus ([facility]) * APHERESIS/TRANSFUSION ORDER(Performed 11/30/2017) * IMAGING/RADIOLOGY/XRAY RESULTS ORDER(Performed 11/29/2017) * LAB RESULTS ORDER(Performed 11/27/2017) * NEURAXIAL BLOCK(Performed 2017) * CBC W/O DIFFERENTIAL(Performed 2017) Performed for Elderly multigravida in third trimester ([facility]) * BLOOD GASES CORD JUAN JOSÉ+LYTES GLU CA+ HH (ISTAT)(Performed 2017) * CBC W AUTO DIFFERENTIAL(Performed 2017) Performed for Isoimmunization from blood group incompatibility during in third trimester,single or unspecified fetus (HCC) * CORDOCENTESIS (INTRAUTERINE)(Performed 2017) * ANTIBODY IDENTIFICATION(Performed 11/25/2017) * TYPE + SCREEN PANEL(Performed 11/25/2017) * CBC W AUTO DIFFERENTIAL(Performed 11/25/2017) Performed for Isoimmunization from blood group incompatibility during in third trimester,single or unspecified fetus (HCC) * PREPARE RBC LEUKOREDUCED UNIT(Performed 11/25/2017) * PREPARE RBC LEUKOREDUCED UNIT(Performed 11/25/2017) * PREPARE RBC LEUKOREDUCED UNIT(Performed 11/25/2017) * PREPARE RBC LEUKOREDUCED UNIT(Performed 11/25/2017) * SONOGRAM - LIMITED(Performed 11/21/2017) Performed for Encounter for supervision of high-risk with elderly multigravida, Anti-D antibodies present during in second trimester, single or unspecified fetus (HCC) * NONSTRESS TEST(Performed 11/20/2017) * GLUCOSE - POINT OF CARE(Performed 11/20/2017) * NEURAXIAL BLOCK(Performed 11/16/2017) * BIOPHYSICAL PROFILE W NST(Performed 11/16/2017) Performed for Anti-D antibodies present during in third trimester, single or unspecified fetus (HCC) * CULTURE STREP B(Performed 11/13/2017) Performed for Isoimmunization from blood group incompatibility during in third trimester,single or unspecified fetus (HCC) * BLOOD GASES CORD JUAN JOSÉ+LYTES GLU CA+ HH (ISTAT)(Performed 11/13/2017) * BLOOD GASES CORD JUAN JOSÉ+LYTES GLU CA+ HH (ISTAT)(Performed 11/13/2017) * CBC W AUTO DIFFERENTIAL(Performed 11/13/2017) Performed for Isoimmunization from blood group incompatibility during in third trimester,single or unspecified fetus (HCC) * CORDOCENTESIS (INTRAUTERINE)(Performed 11/13/2017) Performed for Diagnosis unknown * PREPARE RBC LEUKOREDUCED UNIT(Performed 11/13/2017) * CBC W/O DIFFERENTIAL(Performed 11/13/2017) Performed for Preop examination * GLUCOSE - POINT OF CARE(Performed 11/13/2017) * ANTIBODY IDENTIFICATION(Performed 11/12/2017) * TYPE + SCREEN PANEL(Performed 11/12/2017) * SONOGRAM - COMPLETE(Performed 11/07/2017) Performed for Encounter for supervision of high-risk with elderly multigravida (HCC), Class 3 obesity in adult, unspecified BMI, unspecified obesity type, unspecified whether serious comorbidity present, Anti-D antibodies present during in third trimester, single or unspecified fetus (HCC), Isoimmunization from blood group incompatibility during in third trimester, single or unspecified fetus (HCC), Hypothyroidism, unspecified type, Elderly multigravida in third trimester (HCC), Anti-D antibodies present during , third trimester, fetus 1 (HCC) * SONOGRAM - LIMITED(Performed 10/31/2017) Performed for Encounter for supervision of high-risk with elderly multigravida (HCC), Anti-D antibodies present during in second trimester, single or unspecified fetus (HCC) * LAB RESULTS ORDER(Performed 10/30/2017) * NEURAXIAL BLOCK(Performed 10/26/2017) * BLOOD GASES CORD JUAN JOSÉ+LYTES GLU CA+ HH (ISTAT)(Performed 10/26/2017) * CBC W/O DIFFERENTIAL(Performed 10/26/2017) * BLOOD GASES CORD JUAN JOSÉ+LYTES GLU CA+ HH (ISTAT)(Performed 10/26/2017) * CBC W/O DIFFERENTIAL(Performed 10/26/2017) * CBC W AUTO DIFFERENTIAL(Performed 10/26/2017) * BLOOD GASES CORD JUAN JOSÉ+LYTES GLU CA+ HH (ISTAT)(Performed 10/26/2017) * CYTOGENETICS PANEL(Performed 10/26/2017) Performed for Elderly multigravida in third trimester (HCC) * SONOGRAM - COMPLETE(Performed 10/26/2017) Performed for Supervision of high-risk of elderly multigravida (HCC), Class 3 obesity in adult, unspecified BMI, unspecified obesity type, unspecified whether serious comorbidity present, Anti-D antibodies present during in third trimester, single or unspecified fetus (HCC), Isoimmunization from blood group incompatibility during in third trimester, single or unspecified fetus (HCC), Hypothyroidism, unspecified type, Elderly multigravida in third trimester (HCC), Anti-D antibodies present during , third trimester, fetus 1 (HCC) * CORDOCENTESIS (INTRAUTERINE)(Performed 10/26/2017) * GLUCOSE - POINT OF CARE(Performed 10/26/2017) * NON-STRESS TEST(Performed 10/26/2017) * NON-STRESS TEST(Performed 10/26/2017) * GLUCOSE - POINT OF CARE(Performed 10/26/2017) * GLUCOSE - POINT OF CARE(Performed 10/25/2017) * GLUCOSE - POINT OF CARE(Performed 10/25/2017) * GTT 3 HR (100G) GESTATIONAL DIAGNOSTIC(Performed 10/25/2017) Performed for Elderly multigravida in third trimester ([facility]) * PREPARE RBC LEUKOREDUCED UNIT(Performed 10/25/2017) * BLOOD TYPE VERIFICATION(Performed 10/25/2017) * TSH REFLEX FREE T4(Performed 10/25/2017) * ANTIBODY IDENTIFICATION(Performed 10/25/2017) Performed for Abnormal O'Traylor glucose challenge test, antepartum ([facility]) * TYPE + SCREEN PANEL(Performed 10/25/2017) Performed for Abnormal O'Traylor glucose challenge test, antepartum ([facility]) * CBC W AUTO DIFFERENTIAL(Performed 10/25/2017) Performed for Abnormal O'Traylor glucose challenge test, antepartum ([facility]) * SONOGRAM - LIMITED(Performed 10/24/2017) Performed for Supervision of high-risk of elderly multigravida (HCC), Anti-D antibodies present during in second trimester, single or unspecified fetus (HCC) * SONOGRAM - COMPLETE(Performed 10/19/2017) * SONOGRAM - LIMITED(Performed 10/09/2017) Performed for Supervision of high-risk of elderly multigravida (HCC), Anti-D antibodies present during in second trimester, single or unspecified fetus (HCC) * SONOGRAM - LIMITED(Performed 09/21/2017) Performed for Supervision of high-risk of elderly multigravida (HCC), Anti-D antibodies present during in second trimester, single or unspecified fetus (HCC) * SONOGRAM - COMPLETE(Performed 09/05/2017) Performed for Class 3 obesity in adult, unspecified BMI, unspecified obesity type, unspecified whether serious comorbidity present, Anti-D antibodies present during in second trimester, single or unspecified fetus (HCC), Isoimmunization from blood group incompatibility during , antepartum, single or unspecified fetus (HCC), Antepartum multigravida of advanced maternal age (HCC) * SONOGRAM - COMPLETE(Performed 08/22/2017) Performed for Supervision of high-risk of elderly multigravida (HCC), Class 3 obesity in adult, unspecified BMI, unspecified obesity type, unspecified whether serious comorbidity present, Anti-D antibodies present during , antepartum, single or unspecified fetus (HCC), Isoimmunization from blood group incompatibility during , antepartum, single or unspecified fetus (HCC), Antepartum multigravida of advanced maternal age (HCC) * SONOGRAM - COMPLETE(Performed 06/27/2017) Performed for Supervision of high-risk of elderly multigravida (HCC), Class 3 obesity in adult, unspecified BMI, unspecified obesity type, unspecified whether serious comorbidity present, Anti-D antibodies present during , antepartum, single or unspecified fetus (HCC), Isoimmunization from blood group incompatibility during , antepartum, single or unspecified fetus (HCC), Hypothyroidism, unspecified type * BREATH HYDROGEN/METHANE TEST(Performed 11/06/2014) Performed for Bacterial overgrowth syndrome * US DOPPLER UMBILICAL ART(Performed 05/02/2011) * US AMNIOCENTESIS(Performed 04/25/2011) * AMNIOTIC FLUID SCAN BILIRUBIN(Performed 04/25/2011) * LS RATIO AMNIOTIC FLUID(Performed 04/25/2011) * LUNG MATURITY(Performed 04/25/2011) * DOPPLER MID CEREBRAL ART(Performed 04/25/2011) * LAB HISTORICAL RESULTS-ONBASE(Performed 04/25/2011) * US BIOPHYSICAL PROFILE W/ NST(Performed 04/18/2011) * US BIOPHYSICAL PROFILE W/ NST(Performed 04/11/2011) * ANTIBODY IDENTIFICATION(Performed 04/04/2011) * US OB FOLLOWUP(Performed 04/04/2011) * LAB HISTORICAL RESULTS-ONBASE(Performed 04/04/2011) * ANTIBODY IDENTIFICATION(Performed 03/29/2011) * ANTIBODY IDENTIFICATION(Performed 03/14/2011) * ANTIBODY SCREEN(Performed 03/14/2011) * DOPPLER MID CEREBRAL ART(Performed 02/21/2011) * ANTIBODY IDENTIFICATION(Performed 02/21/2011) * ANTIBODY SCREEN(Performed 02/21/2011) * ANTIBODY IDENTIFICATION(Performed 01/24/2011) * BILE ACIDS(Performed 01/24/2011) * HEMOGLOBIN A1C(Performed 01/24/2011) * URINALYSIS - POINT OF CARE (AMB) SLU(Performed 01/24/2011) * US OB FOLLOWUP(Performed 01/24/2011) * US OB OVER 14 WEEKS(Performed 12/21/2010) * ANTIBODY IDENTIFICATION(Performed 12/21/2010) * ANTIBODY SCREEN(Performed 12/21/2010) * ANTIBODY SCREEN(Performed 11/07/2010) * ANTIBODY IDENTIFICATION(Performed 11/07/2010) * BLOOD TYPE ABO+ RH PANEL(Performed 11/07/2010) * LAB HISTORICAL RESULTS-ONBASE(Performed 11/07/2010) * LAB HISTORICAL RESULTS-ONBASE(Performed 11/07/2010) * URINALYSIS - POINT OF CARE (AMB) SLU(Performed 04/09/1998) * URINALYSIS - POINT OF CARE (AMB) SLU(Performed 04/09/1998) * URINALYSIS - POINT OF CARE (AMB) SLU(Performed 04/09/1998) * URINALYSIS - POINT OF CARE (AMB) SLU(Performed 04/09/1998) * URINALYSIS - POINT OF CARE (AMB) SLU(Performed 04/09/1998) * URINALYSIS - POINT OF CARE (AMB) SLU(Performed 04/09/1998) * PROFILE I W/ HBSAG(Performed 04/09/1998) Results * (ABNORMAL) GLUCOSE - POINT OF CARE (01/22/2018 2:52 PM CDT) Only the most recent of7 resultswithin the time period is included. Pathologist [facility] Glucose WB/POC 129(H) 70 - 106 mg/dL 01/22/2018 2:55 PM CDT [facility] Blood BLOOD SPECIMEN / Unknown 01/22/2018 2:52 PM CDT 01/22/2018 2:55 PM CDT Brisa MONTALVO LAB - POINT OF CAR E ORDERABLES [facility] [address] [place] [address] * HCG URINE QUALITATIVE - POINT OF CARE (01/22/2018 2:39 PM CDT) Pathologist [facility] HCG Qual Urine Negative Negative [facility] QC Verified Yes Yes [facility] POC T TESTING Urine URINE / Unknown 01/22/2018 2 :39 PM CDT Bella Jairo OSMAN-CNM LAB - POINT OF CARE ORDERABLES Performing Organization Address City/[facility] Co de Phone Number [facility] [address] [place] [address] * IMAGING/RADIOLOGY/XRAY RESULTS ORDER (12/13/2017 8:06 AM CDT) Only the most recent of2 resultswithin the time period is included. Anatomical Region Laterality Modality Other Narrative 12/13/2017 8:06 AM CDT Ordered by an unspecified provider. Scanned Document IMAGING * GLUCOSE FASTING (12/08/2017 5:09 AM CDT) [facility] Glucose Fasting 75 74 - 106 mg/dL 12/08/2017 5:45 AM CDT [facility] Blood BLOOD SPECIMEN / Unknown Lab Venipuncture / Unknown 12/08/2017 5:09 AM CDT 12/08/2017 5:18 AM CDT Surjit Thurston MD LAB - CHEMISTRY FERNANDO VERDIN Performing Organization Address [facility] Co de Phone Number [facility] [address] [place] [address] * RH IMMUNE GLOBULIN WORKUP PANEL (12/07/2017 4:58 AM CDT) [facility] # Rhlg vials needed RHG Candidate, Screen Negative 12/07/2017 6:07 AM CDT [facility] Blood Bank BLOOD SPECIMEN / Unknown Lab Venipuncture / Unknown 12/07/2017 4:58 AM CDT 12/07/2017 5:34 AM CDT Adriana Cha MD LAB - BLOOD BANK ORD SHARONDA Performing Organization Address City/[facility]/ZIP Co de Phone Number [facility] [address] [place] [address] * SCREEN (12/07/2017 4:58 AM CDT) Screen Qualitative Negative 12/07/2017 6:06 AM CDT [facility] Blood Bank BLOOD SPECIMEN / Unknown Lab Venipuncture / Unknown 12/07/2017 4:58 AM CDT 12/07/2017 5:34 AM CDT Adriana Cha MD LAB - BLOOD BANK ORD ERABLES [facility] [address] [phone] * NEURAXIAL BLOCK (12/06/2017 4:40 PM CDT) Narrative Bri Caputo MD - 12/06/2017 4:40 PM CDT Mady Portillo APRN-BACK TENDER INSULATION BOARD 12/06/2017 7:54 AM Neuraxial Block Note Procedure Name: Neuraxial Block Patient Location: OB Pre-Procedure: Indications: surgical anesthesia Pre-Anesthetic Checklist: Patient identified, IV Checked, Risks and benefits discussed, Surgical consent verified, Monitors and equipment, Site examined, Pre-op evaluation done, Time-out performed, Informed consent obtained, Questions answered/anesthesia questions answered and Allergies reviewed Anticoagulation/ Anti-thrombosis status confirmed? Yes Monitors: BP, continuous pluse ox, EKG and End tidal CO2 Patient Condition: awake Procedure: Block Type: Spinal Prep: Betadine Sterile Field: mask, cap/hat, sterile established and sterile gloves Approach: midline 10 mL Spinal Block: Needle Type: pencil-point Needle Gauge: 25 Needle Length: 102 mm Placement Site: L3-4 Number of Attempts: 2 (used shanialuba for introducer) CSF: free flow, aspiration before injection, aspiration during injection, aspiration after injection Spinal Local Anesthetic: Bupivacaine: 15 mg of 0.75% in dextrose Spinal Additive: PF Morphine: 0.2 mg Fentanyl: 10 mcg Degree of difficulty: none Procedure Tolerance: tolerated well Sensory Level: T4 Motor Blockade: Yes Position post procedure: left uterine displacement Vital Signs: Vital sings monitored and stable throughout. See anesthesia record for details., Vital signs moniitored and stable throughout. See nursing vitals flowsheet for details. Staff: Anesthesia Provider: MADY PORTILLO - performed the procedure Provider #1: BRI CAPUTO Additional Notes: FHT 130 after SAB Mady Portillo SHRUB GROWER-BACK TENDER INSULATION BOARD GENERAL ANEST HESIA ORDERABLES * (ABNORMAL) CBC W AUTO DIFFERENTIAL (12/06/2017 2:52 PM CDT) Only the most recent of7 resultswithin the time period is included. WBC 14.7(H) 4.4 - 10.7 x10E9/L 12/06/2017 3:15 PM CDT [facility] WBC Corrected x10E9/L 12/06/2017 3:15 PM CDT [facility] RBC 3.43(L) 3.80 - 5.20 x10E12/L 12/06/2017 3:15 PM CDT [facility] Hemoglobin 10.3(L) 12.0 - 15.6 gm/dL 12/06/2017 3:15 PM CDT [facility] Hematocrit 32.4(L) 35.9 - 45.5 % 12/06/2017 3:15 PM CDT [facility] MCV 94.5 80.7 - 98.3 fl 12/06/2017 3:15 PM CDT [facility] MCH 30.0 26.7 - 34.0 pg 12/06/2017 3:15 PM CDT [facility] MCHC 31.8 30.8 - 35.9 gm/dL 12/06/2017 3:15 PM CDT [facility] Platelet Count 153 153 - 416 x10E9/L 12/06/2017 3:15 PM CDT [facility] RDW-CV 14.4 12.1 - 14.9 % 12/06/2017 3:15 PM CDT [facility] MPV 11.1 9.4 - 12.9 fl 12/06/2017 3:15 PM CDT [facility] Neutrophils % 83.0(H) 44.0 - 73.0 % 12/06/2017 3:15 PM CDT [facility] Lymphocytes % 8.9(L) 20.0 - 43.0 % 12/06/2017 3:15 PM CDT [facility] Monocytes % 6.4 5.0 - 13.0 % 12/06/2017 3:15 PM CDT [facility] Eosinophils % 0.7 0.0 - 6.0 % 12/06/2017 3:15 PM CDT [facility] Basophils % 0.3 0.0 - 2.0 % 12/06/2017 3:15 PM CDT [facility] Immature Granulocytes 0.7 0 - 1 % 12/06/2017 3:15 PM CDT [facility] Neutrophil Absolute 12.18(H) 2.01 - 7.14 x10E9/L 12/06/2017 3:15 PM CDT [facility] Lymphocytes Absolute 1.30 1.07 - 3.94 x10E9/L 12/06/2017 3:15 PM CDT [facility] Monocytes Absolute 0.94 0.26 - 1.07 x10E9/L 12/06/2017 3:15 PM CDT [facility] Eosinophils Absolute 0.10 0 - 0.47 x10E9/L 12/06/2017 3:15 PM CDT [facility] Basophils Absolute 0.04 0 - 0.08 x10E9/L 12/06/2017 3:15 PM CDT [facility] Immature Granulocytes Absolute 0.10(H) 0.00 - 0.06 x10E9/L 12/06/2017 3:15 PM CDT [facility] nRBC Auto 0 /100 WBC 12/06/2017 3:15 PM CDT [facility] Blood BLOOD SPECIMEN / Unknown Lab Venipuncture / Unknown 12/06/2017 2:52 PM CDT 12/06/2017 3:08 PM CDT Adriana Cha MD LAB - HEMATOLOGY ORD ERABLES [facility] [address] [place] [address] * BLOOD GASES CORD JUAN JOSÉ (ISTAT) (12/06/2017 8:27 AM CDT) pH Cord Venous POCT 7.39 7.28 - 7.40 pH 12/06/2017 8:32 AM CDT [facility] pCO2 Cord Venous POCT 39 35 - 45 mmHg 12/06/2017 8:32 AM CDT [facility] pO2 Cord Venous POCT 29 22 - 33 mmHg 12/06/2017 8:32 AM CDT [facility] HCO3 Cord Arterial POCT 24 22 - 24 mmol/L 12/06/2017 8:32 AM T [facility] BE Cord Venous POCT Calc -1 -6.4 - 1.6 mmol/L 12/06/2017 8:32 AM CDT [facility] TCO2 Cord Venous POCT 25 22 - 30 mmol/L 12/06/2017 8:32 AM T [facility] O2 Saturation % Cord Venous Calc POCT 54 % 12/06/2017 8:32 AM T [facility] Site CORD JUAN JOSÉ 12/06/2017 8:32 AM T [facility] Sample iSTAT CORD V 12/06/2017 8:32 AM [facility] Blood CORD BLOOD SPECIMEN / Unknown 12/06/2017 8:27 AM CDT 12/06/2017 8:32 AM CDT Cameron Abernathy MD LAB - POINT OF CARE ORDERABLES Performing Organization Address City/State/[facility] Co de Phone Number [facility] [address], [place] [id number] * (ABNORMAL) BLOOD GASES CORD ART (ISTAT) (12/06/2017 8:23 AM CDT) pH Cord Arterial POCT 7.24 7.20 - 7.34 pH 12/06/2017 8:32 AM [facility] pCO2 Cord Arterial POCT 62.3(H) 45 - 55 mmHg 12/06/2017 8:32 AM [facility] pO2 Cord Arterial POCT 14 12 - 25 mmHg 12/06/2017 8:32 AM [facility] HCO3 Cord Arterial POCT 26.5(H) 22 - 24 mmol/L 12/06/2017 8:32 AM T [facility] BE Cord Arterial POCT -2 -2.9 - 8.3 mmol/L 12/06/2017 8:32 AM [facility] TCO2 Cord Arterial POCT 28 mmol/L 12/06/2017 8:32 AM [facility] O2 Saturation Cord Art % Calc POCT 13 % 12/06/2017 8:32 AM CDT [facility] Site CORD ART 12/06/2017 8:32 AM [facility] Sample iSTAT CORD A 12/06/2017 8:32 AM CDT [facility] Blood CORD BLOOD SPECIMEN / Unknown 12/06/2017 8:23 AM CDT 12/06/2017 8:32 AM CDT Cameron Abernathy MD LAB - POINT OF CARE ORDERABLES [facility] [address] [place] [address] * GROSS + MICRO EXAM (STL) (12/06/2017 8:12 AM CDT) Case Report Surgical Pathology Report Case: [id number] Authorizing Provider: Ginger Menard MD Collected: 12/06/2017 08:12 AM Ordering Location: [facility] Received: 12/07/2017 07:47 AM Pathologist: Karly Gonzalez MD Specimen: Placenta 12/11/2017 10:25 AM CDT [facility] Final Diagnosis 1. Placenta, delivery: -- Third trimester placenta, 580 g -- No evidence of villitis -- Small area of perivillous thrombi (less than 5% of the total placental parenchyma) -- Mild acute chorionic vasculitis -- Acute chorioamnionitis, focal mild -- Pigment-laden macrophages seen, consistent with meconium staining -- 3-vessel umbilical cord with no vasculitis and no funisitis -- Acute deciduitis SSD 12/11/2017 10:25 AM CDT [facility] Gross Description The specimen is received fixed in formalin in one container, labeled with the patient's name and placenta and consists of a 20.5 x 15.5 x 3.4 cm placenta with detached segment of umbilical cord and attached membranes. The umbilical cord is white-diaz and glistening, measures 15.0 cm in length x 1.9 cm in diameter, is trivascular, and has no true knots. There is a defect in the surface indicating the previous umbilical cord attachment site located eccentrically on the placenta. The membranes are pink-diaz and translucent and insert marginally. The surface is purple-blue and glistening with a normal arborized vascular pattern and the previously described defect measuring 7.5 x 3.0 cm in the roughly eccentric aspect of the placenta. The placental weight after trimming is 580 g. The maternal surface is covered by lobular and intact, purple-rondon cotyledons over 50% of the maternal surface and roughened and tattered cotyledons over 50% of the cut surface. Sections show spongy and soft, maroon placental parenchyma. Melter Operator sections are submitted as follows: A1 - umbilical cord and membranes. A2 and A3 - placenta. MR/ns 12/11/2017 10:25 AM T [facility] Microscopic Description Placental disc, membrane, and umbilical cord examined. 12/11/2017 10:25 AM T [facility] Disclaimer All histochemical and/or immunohistochemical results are interpreted with controls that demonstrate appropriate staining reactions before reporting results. Note on use of immunocytochemistry reagents: This test was developed and its performance characteristic determined by [facility], Department of Laboratory Medicine. It has not been cleared or approved by the U.S. Food and Drug Administration (FDA). The FDA has determined that such clearance or approval is not necessary. The test is used for clinical purpose. It should not be regarded as investigational or for research. This laboratory is certified to perform high complexity testing. 12/11/2017 10:25 AM CDT [facility] Embedded Images 12/11/2017 10:25 AM T [facility] Pathology/Cytolo gy ENTIRE PLACENTA / Unknown 12/06/2017 8:12 AM CDT 12/07/2017 7:47 AM CDT Ginger Menard MD LAB - PATHOLOGY/C YTOLOGY ORDERABLES [facility] [address] [place] [address] * TYPE + SCREEN PANEL (12/06/2017 6:03 AM CDT) Only the most recent of4 resultswithin the time period is included. ABO A 12/06/2017 7:14 AM CDT [facility] Rh Type Negative 12/06/2017 7:14 AM CDT [facility] Comment:History checked. Antibody Screen Positive 12/06/2017 7:14 AM CDT [facility] Blood Bank BLOOD SPECIMEN / Unknown Venipuncture / Unknown 12/06/2017 6:03 AM CDT 12/06/2017 6:06 AM CDT Keila Taylor MD LAB - BLOOD BANK ORD ERABLES Performing Organization Address [facility] Co de Phone Number [facility] [address] [place] [address] * ANTIBODY IDENTIFICATION (12/06/2017 6:03 AM CDT) Only the most recent of11 resultswithin the time period is included. Antibody Identification Anti-C 12/06/2017 8:13 AM CDT [facility] Antibody Identification 2 Anti-D 12/06/2017 8:13 AM CDT [facility] Comment:Previously reported AUS is currently non-demonstrable. Blood Bank BLOOD SPECIMEN / Unknown Venipuncture / Unknown 12/06/2017 6:03 AM CDT 12/06/2017 6:06 AM CDT Keila Taylor MD LAB - BLOOD BANK ORD ERABLES Performing Organization Address City/[facility] Co de Phone Number [facility] [address] [place] [address] * PREPARE (CROSSMATCH) RBC UNIT(S), 2 Units (12/06/2017 5:45 AM CDT) Only the most recent of7 resultswithin the time period is included. Product Code [id number] [facility] Unit Donor # [id number] [facility] ABO Donor Type A [facility] Rh Type Unit NEG [facility] Crossmatch Interpretation Compatible [facility] Unit Status Ret'd [facility] ABO Rh Type Unit ANEG [facility] C B[facility] LAB Donor Unit Expiration Date [facility] Blood Type Barcode 0600 [facility] Product Code [id number] [facility] Unit Donor # [id number] [facility] ABO Donor Type A [facility] Rh Type Unit NEG [facility] BL [facility]OD [facility]ANK LAB Crossmatch Interpretation Compatible [facility] Unit Status Ret'd [facility] BLO OD BANK LAB ABO Rh Type Unit ANEG [facility] C BLOOD BANK LAB Donor Unit Expiration Date [facility] Blood Type Barcode 0600 [facility] Blood Bank BLOOD SPECIMEN / Unknown 12/06/2017 5:45 AM CDT Keila Taylor MD LAB - BLOOD BANK ORD ERABLES [facility] [address] [id number] [phone] * BIOPHYSICAL PROFILE W NST (11/30/2017 1:38 PM CDT) Only the most recent of2 resultswithin the time period is included. Anatomical Region Laterality Modality Other 11/30/2017 1:38 PM CDT Narrative 11/30/2017 3:24 PM CDT [facility] PHONE: FAX: Pat. Name: ANGELIC ZAYAS Pat. No: [id number] Study Date: 11/30/2017 1:38pm , Age: 08 1975, 42 Pregnancies: 2, Para 1 Height: 67 in Weight: 242 lb LMP: 03/28/2017 GA by LMP: 35w2d GA by Base: 35w2d JIM: 01/02/2018 GA by US: 37w2d JIM: 12/19/2017 GA Selected: 35w2d (From [facility]) JIM: 01/02/2018 Referring MD: Reta Phan MD Skiing Teacher: Amanda Yap [facility] CPT4: 65340,06066,05883 BMI: 37.9 Hist/Ind: Anti D (1:128) Anti Big C (1:4) Advanced maternal age, multigravida MEASUREMENTS & AGE GROWTH EVALUATION Measurement GA Range Srce %for GA Ratios ----- ---- ------- BPD 9.3 cm 37w6d (98m6w-75g6j) Hadl BPD 97% FL/BPD 0.73 (0.71 - 0.87) HC 34.4 cm 39w5d (82t8r-96c6q) Hadl HC 97% FL/AC 0.19 (0.20 - 0.24* AC 36.1 cm 40w0d (76y4n-67e7j) Hadl AC >99 HC/AC 0.95 (0.93 - 1.12) FL 6.8 cm 35w1d (86m7v-59l1g) Hadl FL 38% CI 0.76 (0.70 - 0.86) HL 6.1 cm 35w1d (31w1c-36r2t) Lul HL 48% GA for sonogram 37w2d (95b7f-36l0i) Weight Estimate: based on (BPD,HC,AC,FL) Hadlock Weight: 3568 gm (3047-4089gm) Had : 7lbs, 13oz Normal: 2660 gm (1994-6gm) Had Wt% >97 for 35w2d Heart Rate: 138 bpm Amniotic Fluid Index: 20.6cm (07.8-24.9) Q1: 5.7cm Q2: 5.9cm Q3: 6.0cm Q4: 3.0cm Biophysical Profile: 01/16 Breathin Tone: 2 NST: 2 Movement: 2 AFV: 2 EVAL, PLACENTA Presentation: breech Placenta: posterior Heart Rate: 138 bpm Amniotic Fluid Volume: normal DOPPLER Middle Cerebral Artery PSV 69.1cm/s PI 1.31 (1.45 - 2.60) * Med PSV 51.8cm/s MoM 1.33(<1.5) CLINICAL SUMMARY Study Number: 15 A doyle fetus is identified in breech presentation. The measurements today are consistent with excessive growth compared to previous examination. The JIM selected is based on prior ultrasound examination. The amniotic fluid volume is normal. The placenta is posterior. No major malformations are seen. The patient was advised that ultrasound does not allow detection of all structural or chromosomal abnormalities. IMPRESSION: Single, live IUP at 35w2d Accelerated growth No major malformations seen within the limits of ultrasound Reassuring testing Membrane separation RECOMMEND: NST scheduled for Sunday Deliver scheduled for 12/06 Thank you for allowing us the opportunity to care for your patient. Gunnra Villasenor MD <Electronic Signature> 11/30/2017 03:24pm Ginger Menard MD [facility] ORDERABLES * APHERESIS/TRANSFUSION ORDER (11/30/2017 6:45 AM CDT) Narrative 11/30/2017 6:45 AM CDT Ordered by an unspecified provider. Scanned Document NURSING - VITAL SIGN S AND ASSESSMENT * LAB RESULTS ORDER (11/27/2017 9:04 PM CDT) Only the most recent of2 resultswithin the time period is included. Narrative 11/27/2017 9:04 PM CDT Ordered by an unspecified provider. Scanned Document LAB - THERAPEUTIC DR UG MONITORING ORDERABLES * NEURAXIAL BLOCK (2017 12:05 PM CDT) Narrative Rm Melchor DO - 2017 12:05 PM CDT Wilfredo Sotelo APRN-ALPA 2017 7:17 AM Neuraxial Block Note Procedure Name: Neuraxial Block Patient Location: OB Pre-Procedure: Indications: at patient's request and labor analgesia Pre-Anesthetic Checklist: Patient identified, IV Checked, Risks and benefits discussed, Surgical consent verified, Monitors and equipment, Site examined, Pre-op evaluation done, Time-out performed, Informed consent obtained, Questions answered/anesthesia questions answered and Allergies reviewed Anticoagulation/ Anti-thrombosis status confirmed? Yes Monitors: BP and continuous pluse ox Patient Condition: awake Patient Position: sitting Procedure: Block Type: Epidural Prep: Betadine Sterile Field: mask, cap/hat, sterile established and sterile gloves Approach: midline Skin localized with: lidocaine 1%, 2 mL Epidural Block: Is this procedure for postop pain? No Needle Type: Tuohy Needle gauge: 18 G Needle length: 90 mm Placement Site: L2-L3 Number of Attempts: 1 Loss of Resistance: 5 air Catheter length at skin (cm): 10 CSF Aspirated from catheter: No Blood Aspirated: No Test Dose: 3 mL at 2017 7:02 AM Test Dose Response: No Degree of difficulty: none Procedure Tolerance: tolerated well Sensory Level: T10 Motor Blockade: No Position post procedure: head of bed elevated 30 degrees, left uterine displacement Vital Signs: heart tones monitored and stable throughout., Vital signs moniitored and stable throughout. See nursing vitals flowsheet for details. Staff: Anesthesia Provider: MOLESKIPOWDERLY, WILFREDO - performed the procedure Rm Melchor DO GENERAL ANESTHESIA ORDERABLES * (ABNORMAL) CBC W/O DIFFERENTIAL (2017 9:31 AM CDT) Only the most recent of4 resultswithin the time period is included. WBC 13.5(H) 4.4 - 10.7 x10E9/L 2017 9:33 AM CDT [facility] RBC 4.53 3.80 - 5.20 x10E12/L 2017 9:33 AM CDT [facility] Hemoglobin 14.8 12.0 - 15.6 gm/dL 2017 9:33 AM CDT [facility] Hematocrit 45.1 35.9 - 45.5 % 2017 9:33 AM CDT [facility] MCV 99.6(H) 80.7 - 98.3 fl 2017 9:33 AM CDT [facility] MCH 32.7 26.7 - 34.0 pg 2017 9:33 AM CDT [facility] MCHC 32.8 30.8 - 35.9 gm/dL 2017 9:33 AM CDT [facility] Platelet Count 120(L) 153 - 416 x10E9/L 2017 9:33 AM CDT [facility] RDW-CV 27.0(H) 12.1 - 14.9 % 2017 9:33 AM CDT [facility] MPV 9.8 9.4 - 12.9 fl 2017 9:33 AM CDT [facility] Blood BLOOD SPECIMEN / Unknown Lab Venipuncture / Unknown 2017 9:31 AM CDT 2017 9:31 AM CDT Narrative [facility] - 2017 9:33 AM CDT funi #2 Kelin Mosqueda MD LAB - HEMATOLOGY ORD ERABLES [facility] [address] [place] [address] * (ABNORMAL) BLOOD GASES CORD JUAN JOSÉ+LYTES GLU CA+ HH (ISTAT) (2017 9:29 AM [facility]) Only the most recent of6 resultswithin the time period is included. pH Cord Venous POCT 7.27(L) 7.28 - 7.40 pH 2017 10:14 AM [facility] pCO2 Cord Venous POCT 46(H) 35 - 45 mmHg 2017 10:14 AM [facility] pO2 Cord Venous POCT 26 22 - 33 mmHg 2017 10:14 AM [facility] HCO3 Cord Arterial POCT 21(L) 22 - 24 mmol/L 2017 10:14 AM [facility] BE Cord Venous POCT Calc -6 -6.4 - 1.6 mmol/L 2017 10:14 AM [facility] TCO2 Cord Venous POCT 22 22 - 30 mmol/L 2017 10:14 AM [facility] O2 Saturation % Cord Venous Calc POCT 39 % 2017 10:14 AM [facility] Sodium Cord Venous POCT 140 136 - 145 mmol/L 2017 10:14 AM [facility] Potassium Cord Juan José mmol/l POCT 3.8 3.5 - 5.1 mmol/L 2017 10:14 AM [facility] Calcium Ionized Cord Venous POCT 1.49(H) 1.12 - 1.32 mmol/L 2017 10:14 AM [facility] Glucose Cord Venous POCT 98 74 - 106 mg/dL 2017 10:14 AM [facility] CPB iSTAT No 2017 10:14 AM [facility] Sample iSTAT CORD V 2017 10:14 AM [facility] Site CORD JUAN JOSÉ 2017 10:14 AM [facility] Hemoglobin Cord Venous Calculated POCT 16.0(H) 12.0 - 15.6 g/dL 2017 10:14 AM [facility] Hematocrit Cord Venous POCT 47.0(H) 35.9 - 45.5 %PCV 2017 10:14 AM [facility] Blood CORD BLOOD SPECIMEN / Unknown 2017 9:29 AM CDT 2017 10:14 AM CDT Kelin Mosqueda MD LAB - POINT OF CARE ORDERABLES [facility] [address] [place] [address] * SONOGRAM - LIMITED (11/21/2017 7:33 AM CDT) Only the most recent of5 resultswithin the time period is included. Anatomical Region Laterality Modality Other 11/21/2017 7:33 AM CDT Narrative 11/21/2017 5:52 PM CDT [facility] PHONE: FAX: Pat. Name: ANGELIC ZAYAS Pat. No: [id number] Study Date: 11/21/2017 7:33am , Age: 08 1975, 41 Pregnancies: 2, Para 1 Height: 67 in Weight: 242 lb LMP: 03/28/2017 GA by LMP: 34w0d GA by Base: 34w0d JIM: 01/02/2018 [facility] JIM: 01/02/2018 Referring MD: Reta Phan MD Skiing Teacher: Tessy Hurst, RDMS, RDCS CPT4: 42297,[id number] BMI: 37.9 Hist/Ind: Anti D (1:128) Anti Big C (1:4) Advanced maternal age, multigravida Heart Rate: 146 bpm Amniotic Fluid Index: 23.1cm (08.1-24.8) Q1: 7.5cm Q2: 6.7cm Q3: 3.6cm Q4: 5.2cm Biophysical Profile: 01/16 Breathin Tone: 2 NST: 2 Movement: 2 AFV: 2 EVAL, PLACENTA Heart Rate: 146 bpm DOPPLER Middle Cerebral Artery PSV 76.6cm/s Med PSV 48.8cm/s MoM 1.57(<1.5) Anatomy!Normal!Abnormal!Suboptimal!Comments 4 Chamber Hea! x ! ! !No pericardial effusion Diaphragm ! x ! ! !No pericardial effusion Bowel ! x ! ! !No ascites Kidneys ! x ! ! ! CLINICAL SUMMARY Study Number: 13 A Single fetus is identified in the N/A position. The amniotic fluid volume is N/A. The placenta is N/A. No hydrops demonstrated on today's ultrasound. NST: baseline 140, moderate variability, appropriate accelerations without significant decelerations; Impression: Reactive. [place] with irregular contractions. Doppler studies: No sign of severe anemia. IMPRESSION: Single live IUP 34w0d N/A amniotic fluid Reassuring testing No sign of severe anemia or hydrops RECOMMEND: Twice weekly biophysical profile, once weekly Doppler studies Thank you for the opportunity to participate in the care of your patient. Ginger Menard MD <Electronic Signature> 11/21/2017 05:50pm Revised Reta Phan MD [facility] ORDERABLES * NEURAXIAL BLOCK (11/16/2017 12:54 PM CDT) Narrative Emil Bates DO - 11/16/2017 12:54 PM CDT Marlen Savage APRN-BACK TENDER INSULATION BOARD 11/16/2017 11:19 AM Neuraxial Block Note Procedure Name: Neuraxial Block Patient Location: OR Pre-Procedure: Indications: surgical anesthesia Pre-Anesthetic Checklist: Patient identified, IV Checked, Risks and benefits discussed, Surgical consent verified, Monitors and equipment, Site examined, Pre-op evaluation done, Time-out performed, Informed consent obtained, Questions answered/anesthesia questions answered and Allergies reviewed Anticoagulation/ Anti-thrombosis status confirmed? Yes Monitors: BP, continuous pluse ox, EKG and End tidal CO2 Patient Condition: awake Patient Position: sitting Procedure: Block Type: Epidural Prep: Betadine Sterile Field: mask, cap/hat, sterile established and sterile gloves Approach: midline Skin localized with: lidocaine 1%, Epidural Block: Is this procedure for postop pain? No Needle Type: Tuohy Needle gauge: 18 G Needle length: 90 mm Placement Site: L4-L5 Number of Attempts: 1 Loss of Resistance: 8 Catheter length at skin (cm): 13 CSF Aspirated from catheter: No Blood Aspirated: No Test Dose: lidocaine 1.5% with 1-200,000 epinephrine 3 mL at 11/13/2017 9:15 AM Test Dose Response: No Degree of difficulty: none Procedure Tolerance: tolerated well Sensory Level: T6 Motor Blockade: Yes Position post procedure: left uterine displacement Vital Signs: Vital signs moniitored and stable throughout. See nursing vitals flowsheet for details. Start Time: 11/13/2017 9:12 AM End Time: 11/13/2017 9:15 AM Total Time: 3 Staff: Anesthesia Provider: MARLEN SAVAGE performed the procedure Additional Notes: Patient understood indications and complications of epidural placement. Patient and family in room had no further questions about epidural placement before procedure started. Patient coached through steps of epidural placement and tolerated procedure well. Good EDWIN felt and epidural placed through 18g tuohy needle without pain or parasthesia. Patient indicated test dose negative of circumoral numbness, tinnitus or increased HR/BP at time noted. Emil Bates DO GENERAL ANESTHESIA O STORM * (ABNORMAL) CULTURE STREP B (11/13/2017 1:12 PM CDT) Culture Strep B Growth of Streptococcus agalactiae (Group B)(AA) DYLAN 11/16/2017 1:10 PM CDT [facility] Comment:This is an appended report. These results have been appended to a previously final verified report. Microbiology MISCELLANEOUS SAMPLES / Unknown Collection / Unknown 11/13/2017 1:12 PM CDT 11/13/2017 1:24 PM CDT Narrative [facility] - 11/16/2017 1:10 PM CDT Susceptibility testing of penicillin, other beta-lactam antibiotics, and vancomycin is not necessary for beta-hemolytic streptococci groups A,B,C and G because resistant strains have not been recognized. Maral Shen MD LAB - MICROBIOLOGY O STORM [facility] [address] [place] [phone] * SONOGRAM - COMPLETE (11/07/2017 7:42 AM CDT) Only the most recent of6 resultswithin the time period is included. Anatomical Region Laterality Modality Other 11/07/2017 7:42 AM CDT Narrative 11/20/2017 4:18 PM CDT [facility] PHONE: FAX: Pat. Name: ANGELIC ZAYAS Pat. No: [id number] Study Date: 11/07/2017 7:42am , Age: 08 1975, 41 Pregnancies: 2, Para 1 Height: 67 in Weight: 242 lb LMP: 03/28/2017 GA by LMP: 32w0d GA by Base: 32w0d JIM: 01/02/2018 GA Selected: 32w0d (From [facility]) JIM: 01/02/2018 Referring MD: Reta Phan MD Skiing Teacher: Tessy Hurst, RDMS, RDCS CPT4: 40122,75523 BMI: 37.9 Hist/Ind: Anti D (1:128) Anti Big C (1:4) Advanced maternal age, multigravida Heart Rate: 136 bpm Amniotic Fluid Index: 17.2cm (08.6-24.2) Q1: 0.6cm Q2: 7.3cm Q3: 4.9cm Q4: 4.4cm EVAL, PLACENTA Presentation: breech Placenta: posterior Heart Rate: 136 bpm Amniotic Fluid Volume: normal DOPPLER Middle Cerebral Artery PSV 71.0cm/s Med PSV 44.5cm/s MoM 1.60(<1.5) CLINICAL SUMMARY Study Number: 10 A single fetus is identified in breech presentation. The amniotic fluid volume is normal. The placenta is posterior. The patient was advised that ultrasound does not allow detection of all structural or chromosomal abnormalities. Breathing, tone, and movement was visualized on today's ultrasound. IMPRESSION: 1. Single, live, IUP at 32w0d 2. normal amniotic fluid volume RECOMMEND: Follow up ultrasound weekly for MCA Dopplers. Thank you for allowing us the opportunity to care for your patient. Osmany Crowell MD <Electronic Signature> 11/20/2017 04:18pm Cameron Abernathy MD [facility] ORDERABLES * NEURAXIAL BLOCK (10/26/2017 12:52 PM CDT) Narrative Eddie Garcia MD - 10/26/2017 12:52 PM CDT Dar Schilling, SHRUB GROWER-BACK TENDER INSULATION BOARD 10/26/2017 10:46 AM Neuraxial Block Note Procedure Name: Neuraxial Block Patient Location: OB Pre-Procedure: Indications: surgical anesthesia Pre-Anesthetic Checklist: Patient identified, IV Checked, Risks and benefits discussed, Surgical consent verified, Monitors and equipment, Site examined, Pre-op evaluation done, Time-out performed, Informed consent obtained, Questions answered/anesthesia questions answered and Allergies reviewed Anticoagulation/ Anti-thrombosis status confirmed? Yes Monitors: BP, continuous pluse ox, EKG and End tidal CO2 Patient Condition: awake Patient Position: sitting Procedure: Block Type: Epidural Prep: Other - please comments (alcohol) Sterile Field: mask, cap/hat, sterile established and sterile gloves Approach: midline Skin localized with: lidocaine 1%, 5 mL Epidural Block: Is this procedure for postop pain? No Needle Type: Tuohy Needle gauge: 18 G Placement Site: L4-L5 Number of Attempts: 1 Loss of Resistance: 8 air Catheter length at skin (cm): 12 CSF Aspirated from catheter: No Blood Aspirated: No Test Dose: lidocaine 1.5% with 1-200,000 epinephrine 3 mL Test Dose Response: No Degree of difficulty: none Procedure Tolerance: tolerated well Sensory Level: T6 Motor Blockade: Yes Position post procedure: left uterine displacement Vital Signs: heart tones monitored and stable throughout., Vital sings monitored and stable throughout. See anesthesia record for details. Staff: Anesthesia Provider: DAR SCHILLING performed the procedure Eddie Garcia MD GENERAL ANESTHESIA O RDERABLES * CYTOGENETICS PANEL (10/26/2017 10:26 AM CDT) Indication for Study Advanced Maternal Age GA=30w1d, Sex=Male 11/07/2017 11:36 AM [facility] Results Cytogenetics Fluorescence In-Situ Hybridization (FISH): Analysis of 50 interphase cells hybridized to X,Y and 18 specific fluorescent labeled probes* and 50 interphase cells hybridized to 13 and 21 specific fluorescent labeled probes* showed the following results: nuc devyn(DXZ1x1,DYZ3x1 ,W66E8l7),(RB1,D2 0Y846w6) Normal Male Analysis of 5 cells and count of 20 cells (3 cells karyotyped, GTL-banding) derived from 10 colonies of 2 primary amniotic fluid cultures showed a 46,XY chromosome pattern. 11/07/2017 11:36 AM [facility] Interpretation FISH results indicate the presence of 1 signal each of X and Y, and 2 signals of 18 centromeres, 13q14 loci and 21q22.13-q22.2 loci in most cells. Results implied that there was 1 copy of chromosomes X and Y, and 2 copies of 18, 13 and 21. FISH results should be confirmed by chromosome study. Male chromosome analysis showing 46,XY with no evidence for structural or numerical abnormalities in all cells examined at 450 band resolution. 11/07/2017 11:36 AM [facility] CYTOGENOM[facility] Preliminary result electronically signed by Winter Dobbs PhD [facility]BM[facility] on 10/30/2017 at 12:06 PM Disclaimer *This test was developed, and its performance characteristics determined by [facility] as required by CLIA '88 Regulations. It has not been cleared or approved for specific uses by the U.S. Food and Drug Administration. The FDA has determined that such clearance or approval is not necessary. This test is used for clinical purposes. It should not be reported as investigational or for research. 11/07/2017 11:36 AM CDT [facility] Client Information [facility] - 11/07/2017 11:36 AM CDT [facility] Embedded Images 11:36 AM CDT [facility] Other AMNIOTIC FLUID SPECIMEN / Unknown 10/26/2017 10:26 AM CDT 10/26/2017 3:18 PM CDT Ginger Menard MD LAB - PATHOLOGY/C YTOLOGY ORDERABLES Performing Organization Address City/State/[facility] Co de Phone Number [facility] [address] [place] [address] * (ABNORMAL) GTT 3 HR (100G) GESTATIONAL DIAGNOSTIC (10/25/2017 9:45 AM CDT) Glucose Dose Gestational 100 gm 10/25/2017 10:32 AM CDT [facility] Gestational GTT Fasting 94 50-<95 mg/dL 10/25/2017 10:32 AM CDT [facility] Gestational GTT 1 HR 179 50-<180 mg/dL 10/25/2017 10:32 AM CDT [facility] Gestational GTT 2 HR 203(H) 50-<155 mg/dL 10/25/2017 10:32 AM CDT [facility] Gestational GTT 3 HR 134 50-<140 mg/dL 10/25/2017 10:32 AM CDT [facility] Blood BLOOD SPECIMEN / Unknown Venipuncture / Unknown 10/25/2017 9:45 AM CDT 10/25/2017 6:53 AM CDT Adriana Cha MD LAB - CHEMISTRY FERNANDO VERDIN Performing Organization Address [facility]/ZIP Co de Phone Number [facility] [address] [place] [address] * BLOOD TYPE VERIFICATION (10/25/2017 8:50 AM CDT) ABO A 10/25/2017 11:01 AM CDT [facility] Rh Type Negative 10/25/2017 11:01 AM CDT [facility] Blood Bank BLOOD SPECIMEN / Unknown Venipuncture / Unknown 10/25/2017 8:50 AM CDT 10/25/2017 8:57 AM CDT Cameron Abernathy MD LAB - BLOOD BANK XIOMARA MCDONOUGH Performing Organization Address [facility] Co de Phone Number [facility] [address] [place] [address] * TSH REFLEX FREE T4 (10/25/2017 7:45 AM CDT) TSH 2.41 0.358 - 3.740 ulU/mL 10/25/2017 8:42 AM CDT [facility] Blood BLOOD SPECIMEN / Unknown Lab Venipuncture / Unknown 10/25/2017 7:45 AM CDT 10/25/2017 8:21 AM CDT Keila Taylor MD LAB - CHEMISTRY FERNANDO VERDIN Performing Organization Address City/[facility]/ZIP Co de Phone Number [facility] [address] [place] [address] * US DOPPLER UMBILICAL ART (05/02/2011 9:10 AM GAS DISPATCHER) Anatomical Region Laterality Modality Abdomen Other Narrative 05/02/2011 9:10 AM GAS DISPATCHER Documentation in digisonics. See NST Flowsheet. Procedure Note ProviderFarzad MD - 07/08/2017 Documentation in digisonics. See NST Flowsheet. Luisa Mejia MD US ORDERABLES * US AMNIOCENTESIS (04/25/2011 12:58 PM GAS DISPATCHER) Anatomical Region Laterality Modality Abdomen Other Narrative 04/25/2011 12:58 PM GAS DISPATCHER Ready in Digisonics. Lynn Powell RDMS Procedure Note Provider, MD Farzad - 07/08/2017 Ready in Digisonics. Lynn Powell RDMS Jorge Choudhary MD US ORDERABLES * AMNIOTIC FLUID SCAN BILIRUBIN (04/25/2011 12:50 PM GAS DISPATCHER) Bili Scan Amnio -0.007 [facility] Gestational Age [id number] [facility] AMNIOTIC FLUID SPECIMEN / Unknown 04/25/2011 12:50 PM GAS DISPATCHER 04/25/2011 2:45 PM GAS DISPATCHER Jorge Choudhary MD LAB - BODY FLUID ORD ERABLES Performing Organization Address City/State/[facility] Co de Phone Number [facility] [address] [place] [address] * LS RATIO FLUID (04/25/2011 12:50 PM GAS DISPATCHER) L/S Ratio 3.0 SEE BELOW [facility] Comment: Immature <=1.5 Transitional 1.6-1.9 Mature >=2.0 Color Fluid Pale Yellow [facility] Character Amnio Moderately Cloudy [facility] Gestational Age 37w 2d [facility] Volume Amnio 15 mls ml [facility] Interpretation L/S Ratio [facility] Comment: PLEASE NOTE - L/S Ratio correlates with gestational age only in normal pregnancies. Abnormalities of , such as Retroplacental Bleeding and Ruptured Membranes, Hypertensive Renal or Cardiovascular Disease, Class D, E, and F Diabetes, and Maternal Hypertension can accelerate L/S Ratio maturation. Conversely, delayed maturation of L/S Ratio can be caused by Erythroblastosis Fetalis, Diabetes Mellitus (Class A, B, or C), and Chronic Nonhypertensive Glomerulonephritis. AMNIOTIC FLUID SPECIMEN / Unknown 04/25/2011 12:50 PM GAS DISPATCHER 04/25/2011 2:09 PM GAS DISPATCHER Jorge Choudhary MD LAB - BODY FLUID ORD ERABLES Performing Organization Address [facility] Co de Phone Number [facility] [address] [place] [address] * LUNG MATURITY (04/25/2011 12:50 PM GAS DISPATCHER) FLM 54.43 SEE BELOW mg/g [facility] Comment: See Interpretation for Normals Color Fluid Pale Yellow [facility] Character Amnio Moderately Cloudy [facility] Gestational Age 37w 2d [facility] Volume Amnio 15 ml [facility] Interpretation [facility] Comment: FLM Immature ......... <= 39 mg/g Mature ......... >= 55 mg/g Results between 40 and 54 cannot be declared mature or immature and should be evaluated with caution. AMNIOTIC FLUID SPECIMEN / Unknown 04/25/2011 12:50 PM GAS DISPATCHER 04/25/2011 2:06 PM GAS DISPATCHER Jorge Choudhary MD LAB - BODY FLUID ORD ERABLES Performing Organization Address [facility] Co de Phone Number [facility] [address] [place] [address] * DOPPLER MID CEREBRAL ART (04/25/2011 9:54 AM GAS DISPATCHER) Only the most recent of2 resultswithin the time period is included. Anatomical Region Laterality Modality Head Other Narrative 04/25/2011 9:54 AM GAS DISPATCHER Documentation in digisonics. See NST Flowsheet. Procedure Note Provider, Farzad, - 07/08/2017 Documentation in digisonics. See NST Flowsheet. Jorge Choudhary MD US ORDERABLES * LAB HISTORICAL RESULTS-ONBASE (04/25/2011) Only the most recent of4 resultswithin the time period is included. 04/25/2011 Historical Provider LAB - CHEMISTRY O RDERAMARCUS Performing Organization Address [facility] Co de Phone Number [facility] * US BIOPHYSICAL PROFILE W/ NST (04/18/2011 9:27 AM GAS DISPATCHER) Only the most recent of2 resultswithin the time period is included. Anatomical Region Laterality Modality Other Narrative 04/18/2011 9:27 AM GAS DISPATCHER See NST Flowsheet Documentation in digisonics Procedure Note ProviderFarzad MD - 07/08/2017 See NST Flowsheet Documentation in digisonics Luisa Mejia MD US ORDERABLES * US OB FOLLOWUP (04/04/2011 9:29 AM GAS DISPATCHER) Only the most recent of2 resultswithin the time period is included. Anatomical Region Laterality Modality Abdomen, Pelvis Other Narrative 04/04/2011 9:29 AM GAS DISPATCHER Documentation in digisonics Procedure Note ProviderFarzad MD - 07/10/2017 [facility] Luisa Mejia MD ORDERABLES * (ABNORMAL) ANTIBODY SCREEN (03/14/2011 4:47 PM GAS DISPATCHER) Only the most recent of4 resultswithin the time period is included. Pathologist [facility] Antibody Screen POSITIVE(A ) [facility] ([facility]) Comment: Identification and titer to follow Reference range No antibodies detected This test is intended as a screen to detect those IgG antibodies implicated in hemolytic diseases of the . It does not routinely detect IgM antibodies and thus is not suitable for screening for irregular antibodies prior to transfusion. REPORT COMMENT: PREFERRED LAB:->[facility]; PREFERRED LAB:->[facility] Test Performed at: [facility] [place] [address] [place] [address] CURTIS SALES DO,MPH 03/14/2011 4:47 PM GAS DISPATCHER 03/14/2011 4:47 PM GAS DISPATCHER Narrative [facility] ([facility]) - 03/16/2011 3:00 PM GAS DISPATCHER Preferred Lab:->[facility] Historical Provider LAB - BLOOD BANK ORDERABLES [facility] ([facility]) * HEMOGLOBIN A1C (01/24/2011 1:22 PM CDT) Pathologist [facility] Hemoglobin A1c 5.3 <5.7 % of total Hgb [facility] ([facility]) Comment: Decreased risk of diabetes <5.7 Decreased risk of diabetes 5.7-6.0 Increased risk of diabetes 6.1-6.4 Higher risk of diabetes > or = 6.5 Consistent with diabetes Standards of Medical Care in Diabetes-2010. Diabetes Care, 33(Supp 1): S1-S61,2010. REPORT COMMENT: SEND A COPY TO DR. RETA PHAN ALSO @ [phone]; PREFERR Test Performed at: [facility] [facility] [place] [address] [place] [address] CURTIS SALES DO,MPH Blood specimen (specimen) 01/24/2011 1:22 PM CDT 01/24/2011 1:36 PM CDT Narrative [facility] ([facility]) - 01/25/2011 5:00 AM CDT Send Additional copy to Dr. Reta Phan fax [phone] Preferred Lab:->[facility] Luisa Mejia MD LAB - CHEMISTR Y ORDERABLES Performing Organization Address [facility] Co de Phone Number [facility] ([facility]) * BILE ACIDS (01/24/2011 1:22 PM CDT) Pathologist [facility] Total Bile Acids 8 0 - 19 umol/L [facility] ([facility]) Comment: REPORT COMMENT: SEND A COPY TO DR. RETA PHAN ALSO @ [phone]; PREFERR Test Performed at: [facility] [address] MERARI FLORENCE MD 01/24/2011 1:22 PM CDT 01/24/2011 1:36 PM CDT Narrative [facility] ([facility]) - 01/26/2011 11:00 AM CDT please fax copy to Dr. Reta Phan as well at [phone] Preferred Lab:->[facility] Luisa Mejia MD LAB - CHEMISTR Y ORDERABLES Performing Organization Address City/[facility] Co de Phone Number [facility] ([facility]) * URINALYSIS - POINT OF CARE (AMB) [facility] (01/24/2011 12:53 PM CDT) Only the most recent of7 resultswithin the time period is included. Pathologist [facility] Glucose UA n [facility] Bilirubin UA POCT n [facility] Ketones UA POCT n [facility] Specific [place] UA 1.015 [facility] Blood Urine POCT n [facility] pH UA 7.0 [facility] Protein UA n [facility] Urobilinogen UA n [facility] Nitrite UA n [facility] WBC UA n [facility] Urine specimen (specimen) 01/24/2011 12:53 PM CDT Luisa Mejia MD LAB - POINT OF CARE ORDERABLES [facility] * US OB OVER 14 WEEKS (12/21/2010 11:27 AM CDT) Anatomical Region Laterality Modality Abdomen Other Narrative 12/21/2010 11:27 AM CDT Ready in Digisonics. Lynn Powell RDMS Procedure Note Provider, MD Farzad - 07/10/2017 Ready in Digisonics. Lynn Powell RDMS Vianey Carlson MD US ORDERABLES * BLOOD TYPE ABO+ RH PANEL (11/07/2010 11:30 AM CDT) [facility] ABO A [facility] ([facility]) Rh Type RH (D) NEGATIVE [facility] ([facility]) Comment: REPORT COMMENT: PREFERRED LAB:->[facility] Test Performed at: [facility] [facility] [facility] [address] [address] CURTIS SALES DO,MPH Blood specimen (specimen) 11/07/2010 11:30 AM CDT 11/07/2010 11:42 AM CDT Narrative [facility] ([facility]) - 11/08/2010 4:00 PM CDT Preferred Lab:->[facility] Vianey Carlson MD LAB - BLOOD BANK ORDERABLES [facility] ([facility]) * PROFILE I W/ HBSAG (04/09/1998 12:00 AM GAS DISPATCHER) Antibody Screen positive [facility] Rh Type neg [facility] ABO a [facility] 04/09/1998 Narrative [facility] - 04/09/1998 12:00 AM GAS DISPATCHER This external order was created through the Results Console. Preferred Lab:->[facility] Provider LAB - CHEMISTRY O RDERABLES [facility] Care Teams Consultative Sales Associate Relationship Specialty Start Date End Date Jolene Trujillo MD [address] [place] [id number] PCP - General Family Medicine 12/06/17
--- OUTSIDE RECORDS SUMMARY | 2024-06-24 07:57 | XMS_ITS | Clinical Summary ---
Author Organization [facility] Address [address] [place] [address] Care Team Providers Care Battery Builder Name Role Phone Jolene Trujillo MD Unavailable [phone] Jolene Trujillo MD Primary Care Provider Allergies Active Allergy Reactions Criticality Noted Date Comments Adhesive Itching Low 01/22/2023 Sulfamethoxazole-Trimethoprim Palpitations Low 01/07 Shrimp Soy Sulfa Palpitations Low 01/22/2023 Medications cyanocobalamin (vitamin B-12) 1,000 mcg tablet take one tablet daily 0 0 5 Active Additional Information Patient taking differently:1,000 mcgoral Daily before breakfast, Pt states she is inconsistent with taking, Indications: Prevention of Vitamin B12 Deficiency, Informant: Self, Reported on 06/21/2023 levothyroxine (SYNTHROID, LEVOTHROID) 88 mcg tablet TAKE ONE TABLET BY MOUTH ONCE DAILY 90 3 4 Active Additional Information Patient taking differently:88 mcgoral Daily (early AM), Indications: hypothyroidism, Informant: Self, Reported on 06/21/2023 Saccharomyces boulardii (FLORASTOR) 250 mg capsule Take 800 mg by mouth daily before breakfast Pt states she is inconsistent with taking Active multivitamin tablet Take 1 tablet by mouth daily before breakfast Pt states she is inconsistent with taking Active simethicone (GAS-X) 125 mg capsule Take 180 mg by mouth every 6 (six) hours as needed for flatulence Active acetaminophen (TYLENOL) 325 mg tablet Take 2 tablets (650 mg total) by mouth every 6 (six) hours as needed for pain Active cyclobenzaprine (FLEXERIL) 5 mg tablet Take 1 tablet (5 mg total) by mouth 3 (three) times a day 90 tablet 4 Active senna (SENOKOT) 8.6 mg tablet Take 1 tablet by mouth 2 (two) times a day as needed for constipation 60 tablet 4 Active naloxone (Narcan) 4 mg/actuation spray,non-aeros olIndications:r isk mitigation for opioid overdose Administer 1 spray into affected nostril(s) every 5 (five) minutes as needed for opioid reversal Call 911. Administer a single spray in one nostril. Repeat every 3 minutes as needed if no or minimal response. 1 each 4 Active Active Problems Problem Noted Date Diagnosed Date Drop in hemoglobin 07/01/2023 Assessment & Plan (07/03/2023 10:05 AM CDT): 06/30 hgb 9.9 from 10.9, dilutional vs phlebotomy, no signs of active bleeding, daily labs 07/01 HGB 9.2, no signs of bleeding. HDS. 07/02 HGB 10.1 at discharge. Discharge planning issues 06/27/2023 Assessment & Plan (07/03/2023 10:05 AM CDT): -06/26 OR with Antonioo, admission post-op ADAT, ADD Sunday-06/29 passed PT for home with WW, ADD Saturday 07/01 Will likely discharge home tomorrow. 07/02 Discharging home today with pain medication and laxatives to avoid constipation. Acute postoperative abdominal pain 06/27/2023 Assessment & Plan (07/03/2023 7:44 AM CDT): -Epidural placed pre-op, stanley placed -dPCA ordered post-op -Pain management following, pain controlled 07/01 Tolerating a diet, LEAD VULCANIZING OPERATOR discontinued and oxycodone PRN started. Pain removed epidural catheter and stanley will be removed. 07/02 Pain well controlled with PO oxycodone and tylenol. Ventral hernia without obstruction or gangrene 0 06/20/2023 Assessment & Plan (07/03/2023 10:11 AM CDT): OR 06/26 (Elena) Exploratory laparotomy, resection of incarcerated omentum, excision of denuded abdominal wall measuring 25 x 3 cm, excision of mesh, repair of abdominal wall hernia with bilateral posterior component separation with myofascial cutaneous release with insertion of synthetic mesh in the retrorectal space L DENIS retrorectus, R DENIS subcutaneous. -NPO, NGT to LIWS, IVF -Stanley -PT/OT -no antibiotics needed -iWV to be removed POD5, Mon 07/01 06/27 POD1 ARBF, no bowel function. Midline WV holding suction. NG with minimal drainage. Denies nausea. DENIS drains SS. PT/OT pending. 06/28 POD2 AFVSS, NGT 750cc/24h, midline vac, R DENIS 26cc/24h serosang, L DENIS 74cc/24h serosang, ARBF 06/29 POD3 AFVSS, NGT 325cc/24h, midline vac, IS 1.5L, R DENIS 44cc/24h serosang, L DENIS 55cc/24h serosang, NGT CLAMP TRIAL TODAY 06/30 POD4 AFVSS, NGT removed, sips/chips overnight tolerated, CLD, midline vac, R DENIS 22cc/24h serosang, L DENIS 55cc/24h serosang, +flatus 07/01 HDS. Tolerated clear liquids and advancing to regular diet. Midline wound VAC removed. Incision clean, no signs of infection. DENIS drains SS. Passing flatus. Adding bowel regimen. Changing to PO pain medications, epidural removed and removing stanley. 07/02 HDS. Tolerating a regular diet. Passing flatus, no BM. Senna scheduled and dulcolax suppository given. Midline umesh clean, no signs of infection. DENIS drains SS. Wearing abdominal binder. Ambulating in room. Discharging home today with prescription for narcotics and laxatives to avoid constipation. She has been instructed to continue laxatives until she has a BM and then take as needed. She will follow up with Dr. Parker first of July. Cultures: none Antibiotics: 06/26 erta x1 Pathology: Soft tissue, hernia mesh, removal - Mesh (gross only diagnosis) Hypothyroidism 01/22/2023 Assessment & Plan (07/01/2023 12:57 PM CDT): -Home synthroid held -Will restart IV therapy if NPO x 5days -resumed 07/01 Umbilical hernia 01/22/2023 Surgical History Surgery Date Site/Laterality Comments SECTION 04/09/2011 - 04/08/2012 CHOLECYSTECTOMY 04/09/2020 - 05/09/2020 COLONOSCOPY 04/09/2011 - 04/08/2012 ESOPHAGOGASTRODUODENOSCOPY 04/09/2011 - 04/08/2012 UMBILICAL HERNIA REPAIR 08/31/2021 PELVIC FRACTURE SURGERY 04/09/2003 - 04/08/2004 Medical History Medical History Date Comments Vitamin D deficiency Hypothyroidism Umbilical hernia Heart murmur Amenorrhea Family History Medical History Relation Name Comments Anesthesia problems Neg Hx Social History Tobacco Use Types Packs/Day Years Used Date Smoking Tobacco: Never Smokeless Tobacco: Never Tobacco Cessation:Counseling Given: Not Answered Alcohol Use Standard Drinks/Week Comments No 0 (1 standard drink = 0.6 oz pur e alcohol) AUDIT-C Answer Date Recorded Q1: How often do you have a drink containing alcohol? Never 06/27/2023 Q2: How many drinks containi ng alcohol do you have on a typical day when you are drinking? Patient does not drink Q3: How often do you have si x or more drinks on one occasion? Never 06/27/2023 Personal Safety Answer Date Recorded Have you ever been in or are you currently in a harmful physical or emotional relationship or is someone making you feel afraid or unsafe? Denies 06/27/2023 Comments No Sex and Gender Information Value Date Recorded Sex Assigned at Not on file Legal Sex Female 8:34 PM BEAD WIRE INSULATOR Gender Identity Female 02/22/2024 7:33 AM BEAD WIRE INSULATOR Sexual Orientation Straight 02/22/2024 7: 33 AM BEAD WIRE INSULATOR Obstetrics History Last Filed Vital Signs Vital Sign Reading Time Taken Comments Blood Pressure 145/82 03/11/2024 8:10 AM BEAD WIRE INSULATOR Pulse 55 03/11/2024 8:10 AM BEAD WIRE INSULATOR Temperature 36.4 C (97.6 F) 03/11/2024 8:10 AM BEAD WIRE INSULATOR Respiratory Rate 16 03/11/2024 8:10 AM BEAD WIRE INSULATOR Oxygen Saturation 98% 03/11/2024 8:10 AM BEAD WIRE INSULATOR Inhaled Oxygen Concentration - - Weight 105.9 kg (233 lb 8 oz) 03/11/2024 8:10 AM BEAD WIRE INSULATOR Height 167.6 cm (5' 6 ) 03/11/2024 8:10 AM BEAD WIRE INSULATOR Body Mass Index 37.69 03/11/2024 8:10 AM BEAD WIRE INSULATOR Plan of Treatment Health Maintenance Due Date Last Done Comments Breast Cancer Screening-Mammogram 1975 Cervical Cancer Screening 1975 Colon Cancer Screening-Colonoscopy 1975 Depression Screening 1975 Hepatitis C Screening 1975 Hepatitis B Screening 11/25/1993 Regular Well Visit/Exam 18-64 11/25/1993 DTaP/Tdap/Td Vaccine (2 - Tdap) 04/09/2021 2 Influenza Vaccine (#1) 2023 Pneumococcal vaccine <65 Aged Out No longer eligible based on patient's age to complete this topic Medical Devices Implanted Type Area Carpet Cleaner Device Identifier Shelf Expiration Date Model / Serial / Lot [employer]/C R Bard [id number] Monofilament Soft Lightweight Low Profile Square - [id number] Implanted:Qty: 1 on 06/27/2023 by Cedrick Parker MD at [facility] N/A: Abdomen [employer]/C R Bard [id number] 11/03/2026 [id number] / / [id number] Insurance [facility] LYNNETTE ALMARAZ Advance Directives For more information, please contact: [phone] * Full Code (Latest Code Status on File) Date Activated Date Inactivated Comments 06/27/2023 1:57 PM 07/03/2023 5:40 PM Care Teams Battery Builder Relationship Specialty Start Date End Date Jolene Trujillo MD [address] [place] [address] PCP - General Family Medicine 06/21/23 Jolene Trujillo MD [address] [place] [address] Referring Physician Family Medicine 12/26/22
--- OUTSIDE RECORDS SUMMARY | 2024-06-24 07:57 | XMS_ITS | Clinical Summary ---
Author Organization [facility] Address [address] [place] [address] Care Team Providers Care Hvac Engineer Name Role Phone Jolene Trujillo MD Primary Care Provider Allergies Active Allergy Reactions Criticality Noted Date Comments Sulfamethoxazole-Trimeth oprim Palpitations Low 03/07/2019 Shellfish Allergy Anaphylaxis High 10/25/2017 Soybean-Containing Drug Products Dizziness,Unknown 01/28/2015 Soy caused her to become dizzy Sulfa Antibiotics Palpitations Low 06/27/2017 Medications levothyroxine 88 MCG tablet Take 1 tablet (88 mcg total) by mouth daily. 3 02/07/2019 Active famotidine (PEPCID) 40 MG tablet Take 1 tablet (40 mg total) by mouth daily. 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 No transfusions were needed. Anti Big C, titer: (Critical titer 1:32) ([facility] family: Infrequently associated with severe hemolytic disease) 06/02/17 1:4 08/10/17 1:4 10/13/17 1:8 Obesity 06/26/2017 Overview (03/19/2020): Overview: Early GCT: 127 Third trimester GCT 172 GTT: 94/179/203/134 S/p Dietary counseling. Checking blood sugars at home. Supervision of high-risk pre gnancy of elderly multigravida ([facility]) 06/26/2017 Overview (03/19/2020): Last Assessment & Plan: Dating: LMP: 03/28/17, JIM: 01/02/18; need U/S report PNL: A-/Imm/-/- HIV NR Antibody: Anti Big C, Anti-D Pap: GC/CT: Urine cx: neg Early GCT: 127 H/H/P: 12.6/38.1/283 HgbE: Genetics: Anatomy US: Flu shot: Tdap: LFT's: HCV: GCT: GBS: Family History Medical History Relation Comments Cancer Father Diabetes Father Hypertension Father Heart Disease Mother Relation Status Comments Brother Alive Daughter Alive Father Alive Mother Sister Alive Son Alive Social History Tobacco Use Types Packs/Day Years Used Date Smoking Tobacco: Never Smokeless Tobacco: Never Tobacco Cessation:Counseling Given: Not Answered Alcohol Use Standard Drinks/Week Comments No 0 (1 standard drink = 0.6 oz pur e alcohol) AUDIT-C Answer Date Recorded Frequency of Alcohol Consumption Never 03/07/2019 Average Number of Drinks Not on file 019 Frequency of Binge Drinking Not on file 02/08 Comments No Sex and Gender Information Value Date Recorded Sex Assigned at Female 01/03/2024 8:14 AM CDT Legal Sex Female 7:06 PM CDT Gender Identity Female 01/03/2024 8:14 AM CDT Sexual Orientation Straight 01/03/2024 8: 14 AM CDT Last Filed Vital Signs Vital Sign Reading Time Taken Comments Blood Pressure 108/66 06/28/2022 4:25 PM CDT Pulse 64 06/28/2022 4:25 PM CDT Temperature 36.3 C (97.3 F) 06/28/2022 4:25 PM CDT Respiratory Rate 17 06/28/2022 4:25 PM CDT Oxygen Saturation 98% 06/28/2022 4:25 PM CDT Inhaled Oxygen Concentration - - Weight 102.1 kg (225 lb) 06/28/2022 1:34 PM CDT Height 170.2 cm (5' 7 ) 06/28/2022 1:34 PM CDT Body Mass Index 35.24 06/28/2022 1:34 PM CDT Plan of Treatment Health Maintenance Due Date Last Done Comments Cervical Cancer Screening Pa p Smear (Age 30 to 64) Every 3 Years 1975 Colorectal Cancer Screening Colonoscopy (10 Years) 1975 Annual Physical 11/25/1978 Hepatitis C 11/25/1993 Hepatitis B Vaccines (1 of 3 - 19+ 3-dose series) 11/25/1994 Cervical Cancer Screening Pa p with HPV Testing (Age 30 to 64) Every 5 Years 11/25/2005 Cervical Cancer Screening with HPV 11/25/2005 Mammogram Screening 2015 DTaP, Tdap and Td Vaccines ( 2 - Tdap) 04/09/2021 04/09/2011 COVID-19 Vaccine (2023-2 5 season) 2023 Influenza Adult (#1) 2024 Meningococcal B Vaccine Aged Out No l onger eligible based on patient's age to complete this topic Meningococcal Vaccine Aged Out No rachelle ryan eligible based on patient's age to complete this topic Pneumococcal Vaccine: Pediat rics (0 to 5 Years) and At-Risk Patients (6 to 64 Years) Aged Out No longer eligi ble based on patient's age to complete this topic RSV Immunizations Under 20 Months Aged Out No longer eligible based on patient's age to complete this topic Insurance Advance Directives * Full Code (Latest Code Status on File) Date Activated Date Inactivated Comments 03/19/2020 12:19 PM 03/21/2020 8:00 PM Care Teams Hvac Engineer Relationship Specialty Start Date End Date Jolene Trujillo MD [address] [place] [address] PCP - General FAMILY PRACTICE 03/07/19
--- OUTSIDE RECORDS SUMMARY | 2024-06-24 07:57 | XMS_ITS | Clinical Summary ---
Author Organization [facility] Address [address] [place] [place] [address] Care Team Providers Care Psychiatric Therapist Name Role Phone Jolene Trujillo MD Primary Care Provider + [phone] Source Comments [facility],non-owned Affiliates and Associated Physician Practices is amultiple site organization consisting of ambulatory clinics and hospital sitesin [place], [place], [place] and [place]. This disclosure is being madepursuant to the Care Everywhere program and may not contain all information available regarding this patient. Last updated 17.[facility] Allergies Active Allergy Reactions Criticality Noted Date Comments Isoflavones Other Soy caused her to become dizzy Shellfish Allergy Anaphylaxis High 10/25/2017 Sulfa Drugs Palpitations 06/27/2017 Medications * Be aware that medications may not be up to date on this document. Alwaysverify current medications with the patient. Medication Sig Dispensed Refills Start Date End Date Status levothyroxine (SYNTHROID) 88 MCG tablet Take 88 mcg by mouth daily before breakfast Active cyanocobalamin (VITAMIN B-12) 1000 MCG tablet Take 2,000 mcg by mouth once daily Active Vit-Fe Fumarate-FA ( VITAMIN) 28-0.8 MG tablet Take 1 tablet by mouth once daily Active Probiotic Product (PROBIOTIC + OMEGA-3 PO) Active famotidine (PEPCID) 20 MG tablet Take 20 mg by mouth once daily Active IRON, FERROUS GLUCONATE, PO Take 1 tablet by mouth once daily Active docusate sodium (COLACE) 100 MG capsule Take 100 mg by mouth once daily Active calcium carbonate (TUMS) 500 MG chew tablet Take 1 tablet by mouth daily with food Active levothyroxine (SYNTHROID) 88 MCG tablet Take 1 tablet by mouth daily before breakfast 60 tablet 2 12/11/2017 Active Additional Information Patient not taking.Reported on 12/18/2017 ibuprofen (MOTRIN) 600 MG tablet Take 1 tablet by mouth every 6 hours as needed for Pain 60 tablet 2 12/10/2017 Active Additional Information Patient not taking.Reported on 12/18/2017 docusate sodium (COLACE) 100 MG capsule Take 1 capsule by mouth 2 times daily 30 capsule 2 12/10/2017 Active Additional Information Patient not taking.Reported on 12/18/2017 polyethylene glycol 3350 (MIRALAX) packet Take 17 g by mouth once daily 30 packet 1 12/10/2017 Active Additional Information Patient not taking.Reported on 12/18/2017 Active Problems Problem Noted Date Diagnosed Date Supervision of high-risk of elderly mu ltigravida 06/26/2017 Assessment & Plan (06/27/2017 10:19 AM CDT): Dating: LMP: 03/28/17, JIM: 01/02/18; need U/S report PNL: A-/Imm/-/- HIV NR Antibody: Anti Big C, Anti-D Pap: GC/CT: Urine cx: neg Early GCT: 127 H/H/P: 12.6/38.1/283 HgbE: Genetics: Anatomy US: Flu shot: Tdap: LFT's: HCV: GCT: GBS: Obesity 06/26/2017 Overview (11/20/2017): Early GCT: 127 Third trimester GCT 172 GTT: 94/179/203/134 S/p Dietary counseling. Checking blood sugars at home. 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 No transfusions were needed. 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 Checking blood sugars at home. History of pelvic fracture 05/02/2011 0 11/20/2017 Overview (08/22/2017): Overview: Fixation hardware in left sacral ala, bilat iliac bones. Obesity complicating pregnan cy in third trimester 11/20/2017 32 weeks gestation of 11/20/2017 Family History Medical History Relation Name Comments Diabetes Father Hypertension Father Relation Name Status Comments Father Social History Tobacco Use Types Packs/Day Years [...] Mass Index 36.96 01/22/2018 2:41 PM CDT Plan of Treatment Health Maintenance Due Date Last Done Comments COLOGUARD (AGES 45-75) - COL ON CA SCREENING 1975 COLON MONITORING 1975 COLONOSCOPY - COLON CA SCREENING 1975 CT COLONOGRAPHY - COLON CA SCREENING 1975 Colorectal Cancer Screening 1975 FIT - COLON CA SCREENING 1975 FLEX SIG - COLON CA SCREENING 1975 LIPID TESTING 1975 MAMMOGRAM 1975 HIV SCREENING 11/25/1990 HEPATITIS C SCREENING 11/21/1993 DTAP/TDAP/TD VACCINES (1 - Tdap) 11/25/1994 HEPATITIS B VACCINE (1 of 3 - 19+ 3-dose series) 11/25/1994 COVID-19 VACCINE ( - 2023-2 5 season) 2023 INFLUENZA VACCINE (#1) 2023 DEPRESSION SCREENING 04/09/2024 ZOSTER VACCINE (1 of 2) 11/25/2025 HIB VACCINE Aged Out No longer eligi ble based on patient's age to complete this topic HPV VACCINE Aged Out No longer eligi ble based on patient's age to complete this topic MENINGOCOCCAL (Group B) VACC INE SHARED DECISION-MAKING Aged Out No longer eligibl e based on patient's age to complete this topic MENINGOCOCCAL GROUPS A/C/Y/W VACCINE Aged Out No longer eligible b ased on patient's age to complete this topic PNEUMOCOCCAL VACCINE Aged Out No long er eligible based on patient's age to complete this topic Procedures Procedure Name Priority Date/Time Associated Diagnosis Comments CULTURE STREP B Routine 11/13/2017 1:12 PM CDT Isoimmunization from blood group incompatibility during in third trimester, single or unspecified fetus (HCC) GTT 3 HR (100G) GESTATIONAL DIAGNOSTIC Routine 10/25/2017 9:45 AM CDT Elderly multigravida in third trimester (HCC) from Last 3 Months or Most Recently Relevant to Health Maintenance Results * (ABNORMAL) CULTURE STREP B (11/13/2017 1:12 PM CDT) Culture Strep B Growth of Streptococcus agalactiae (Group B)(AA) DYLAN 11/16/2017 1:10 PM CDT [facility] Comment:This is an appended report. These results have been appended to a previously final verified report. Microbiology MISCELLANEOUS SAMPLES / Unknown Collection / Unknown 11/13/2017 1:12 PM CDT 11/13/2017 1:24 PM CDT Narrative [facility] - 11/16/2017 1:10 PM CDT Susceptibility testing of penicillin, other beta-lactam antibiotics, and vancomycin is not necessary for beta-hemolytic streptococci groups A,B,C and G because resistant strains have not been recognized. Maral Shen MD LAB - MICROBIOLOGY O RDERABLES [facility] [address] [place], [place] [address], [facility] [phone] * (ABNORMAL) GTT 3 HR (100G) GESTATIONAL DIAGNOSTIC (10/25/2017 9:45 AM CDT) Glucose Dose Gestational 100 gm 10/25/2017 10:[address] [facility] Gestational GTT Fasting 94 50-<95 mg/dL 10/25/2017 10:[address] [facility] Gestational GTT 1 HR 179 50-<180 mg/dL 10/25/2017 10:[address] [facility] Gestational GTT 2 HR 203(H) 50-<155 mg/dL 10/25/2017 10:[address] [facility] Gestational GTT 3 HR 134 50-<140 mg/dL 10/25/2017 10:[address] [facility] Blood BLOOD SPECIMEN / Unknown Venipuncture / Unknown 10/25/2017 9:45 AM CDT 10/25/2017 6:53 AM CDT Adriana Cha MD LAB - CHEMISTRY FERNANDO VERDIN [facility] [address] [place] [address] from Last 3 Months or Most Recently Relevant to Health Maintenance Advance Directives * Full Code (Latest Code Status on File) Date Activated Date Inactivated Comments 12/06/2017 5:37 AM 12/10/2017 3:50 PM * Full Code Date Activated Date Inactivated Comments 2017 7:31 AM 2017 3:32 PM * Full Code Date Activated Date Inactivated Comments 11/25/2017 8:05 PM 2017 7:31 AM * Full Code Date Activated Date Inactivated Comments 11/20/2017 7:25 PM 11/20/2017 9:33 PM * Full Code Date Activated Date Inactivated Comments 10/26/2017 12:09 PM 10/26/2017 4:41 PM Care Teams Psychiatric Therapist Relationship Specialty Start Date End Date Jolene Trujillo MD [address] [place] [id number] PCP - General Family Medicine 12/06/17
--- OUTSIDE RECORDS SUMMARY | 2024-06-24 07:57 | XMS_ITS | Referral Summary ---
Author Organization [facility] Address [address] [place] [address] Care Team Providers Care Liner Assembler Name Role Phone Jolene Trujillo MD Unavailable [phone] Jolene Trujillo MD Primary Care Provider Allergies [...] following, pain controlled 07/01 Tolerating a diet, HEALTHCARE MANAGER discontinued and oxycodone PRN started. Pain removed [...] x 5days -resumed 07/01 Umbilical hernia 01/22/2023 Social History Tobacco Use Types Packs/Day Years [...] on file Legal Sex Female 8:34 PM QUAD STAYER Gender Identity Female 02/22/2024 7:33 AM QUAD STAYER Sexual Orientation Straight 02/22/2024 7: 33 AM QUAD STAYER Last Filed Vital Signs Vital Sign Reading Time Taken Comments Blood Pressure 145/82 03/11/2024 8:10 AM QUAD STAYER Pulse 55 03/11/2024 8:10 AM QUAD STAYER Temperature 36.4 C (97.6 F) 03/11/2024 8:10 AM QUAD STAYER Respiratory Rate 16 03/11/2024 8:10 AM QUAD STAYER Oxygen Saturation 98% 03/11/2024 8:10 AM QUAD STAYER Inhaled Oxygen Concentration - - Weight 105.9 kg (233 lb 8 oz) 03/11/2024 8:10 AM QUAD STAYER Height 167.6 cm (5' 6 ) 03/11/2024 8:10 AM QUAD STAYER Body Mass Index 37.69 03/11/2024 8:10 AM QUAD STAYER Plan of Treatment Not on file Medical Devices Implanted Type Area Car Repairer [place] Device Identifier Shelf Expiration Date Model / Serial / Lot [employer]/C R Bard [id number] Monofilament Soft Lightweight Low Profile Square - [id number] Implanted:Qty: 1 on 06/27/2023 by Cedrick Parker MD at [facility] N/A: Abdomen Ro Inc/C [facility] [id number] 11/03/2026 [id number] / / [id number] Insurance [employer] Advance Directives For more information, please contact: [phone] * Full Code (Latest Code Status on File) Date Activated Date Inactivated Comments 06/27/2023 1:57 PM 07/03/2023 5:40 PM Care Teams Liner Assembler Relationship Specialty Start Date End Date Jolene Trujillo MD [address] [place] [id number] PCP - General Family Medicine 06/21/23 Jolene Trujillo MD [address] [place] [address] Referring Physician Family Medicine 12/26/22
--- OUTSIDE RECORDS SUMMARY | 2024-06-24 07:57 | XMS_ITS | Encounter Summary ---
Author Organization [facility] Address [address] [place] [address] Care Team Providers Care Motor Installer Name Role Phone Jolene Trujillo MD Primary Care Provider Encounter Details Date Type Department Care Team (Late st Contact Info) Description 10/01/2017 Abstract [facility] CONVERSION [address] [place] [address] , Generic ConversionMD Social History Tobacco Use Types Packs/Day Years Used Date Smoking Tobacco: Never Assessed Comments Unknown Sex and Gender Information Value Date Recorded Sex Assigned at Female 01/03/2024 8:14 AM CDT Legal Sex Female 7:06 PM CDT Gender Identity Female 01/03/2024 8:14 AM CDT Sexual Orientation Straight 01/03/2024 8: 14 AM CDT documented as of this encounter Plan of Treatment Not on file documented as of this encounter Visit Diagnoses Not on filedocumented in this encounter Additional Health Concerns Infection Onset Date Last Indicated Resolved Time COVID-19 Rule Out 03/19/2020 03/19/2020 03/19/2020 11:53 AM FRENCH LECTURER COVID-19 Confirmed 03/19/2020 03/19/2020 12:34 AM FRENCH LECTURER documented as of this encounter Care Teams Motor Installer Relationship Specialty Start Date End Date Jolene Trujillo MD [address] [place] [address] PCP - General FAMILY PRACTICE 03/07/19 documented as of this encounter
--- OUTSIDE RECORDS SUMMARY | 2024-06-24 07:57 | XMS_ITS | CONTINUITY OF CARE DOCUMENT ---
Author Name sylvain narayan Address Unknown Organization [facility] Address [address] [facility] [address] [place] [address] Phone [phone] Care Team Providers Care Chief Investigator Name Role Phone Aiden HILL, Jarred Unavailable [phone] GINGER LAYNE MD Unavailable GINGER LAYNE MD Unavailable INSURANCE PROVIDERS Payer name Policy type / Coverage type Deposit red democrat ID [facility] [id number]
--- OUTSIDE RECORDS SUMMARY | 2024-06-24 07:57 | XMS_ITS | Referral Summary ---
Author Organization [facility] [employer] Address [address] [place] [address] Care Team Providers Care Homicide Squad Sergeant Name Role Phone Jolene Trujillo MD Primary Care Provider + [phone] Source Comments [facility] [employer],non-owned Affiliates and Associated Physician Practices is amultiple site organization consisting of ambulatory clinics and hospital sitesin [place], [place], [place] and [place]. This disclosure is being madepursuant to the Care Everywhere program and may not contain all information available regarding this patient. Last updated 17.[facility] [employer] Allergies Active Allergy Reactions Criticality Noted Date [...] ANCS x 2 Delivery at [facility] between 35-36 --> R C/S needs scheduling is a registered donor with [place] [facility] [place] [facility] (O Pos)--he wants to designate [...] Mass Index 36.96 01/22/2018 2:41 PM CDT Functional Status Functional Status Response Date of Assess ment Is person deaf or have serious hearing difficult y? No 12/06/2017 Is person blind or have serious difficulty seein g? No 12/06/2017 Does person have serious dif ficulty walking/climbing stairs? No 12/06/2017 Does person have difficulty dressing/bathing? No 12/06/2017 Does person have difficulty doing errands alone? No 12/06/2017 Cognitive Status Response Date of Assessm ent Does person have difficulty concentrating/remembering/making decisions? No 12/06/2017 Plan of Treatment Not on file Procedures Procedure Name Priority Date/Time Associated Diagnosis [...] (Group B)(AA) DYLAN 11/16/2017 1:10 PM CDT [facility] Comment:This is an appended report. These results have been appended to a previously final verified report. Microbiology MISCELLANEOUS SAMPLES / Unknown Collection / Unknown 11/13/2017 1:12 PM CDT 11/13/2017 1:24 PM CDT Narrative [facility] - 11/16/2017 1:10 PM CDT Susceptibility testing of penicillin, other beta-lactam antibiotics, and vancomycin is not necessary for beta-hemolytic streptococci groups A,B,C and G because resistant strains have not been recognized. Maral Shen MD LAB - MICROBIOLOGY [facility] [address] [place] [address], [facility] [phone] * (ABNORMAL) GTT 3 HR (100G) GESTATIONAL DIAGNOSTIC (10/25/2017 9:45 AM CDT) [facility] Signature Glucose Dose Gestational 100 gm 10/25/2017 10:32 AM CDT [facility] Gestational GTT Fasting 94 50-<95 mg/dL 10/25/2017 10:32 AM CDT [facility] Gestational GTT 1 HR 179 50-<180 mg/dL 10/25/2017 10:32 AM CDT [facility] Gestational GTT 2 HR 203(H) 50-<155 mg/dL 10/25/2017 10:32 AM CDT [facility] Gestational GTT 3 HR 134 50-<140 mg/dL 10/25/2017 10:32 AM CDT [facility] Blood BLOOD SPECIMEN / Unknown Venipuncture / Unknown 10/25/2017 9:45 AM CDT 10/25/2017 6:53 AM CDT Adriana Cha MD LAB - CHEMISTRY FERNANDO VERDIN [facility] [address] [place] [address] from Last 3 Months or Most Recently [...] 12:09 PM 10/26/2017 4:41 PM Care Teams Homicide Squad Sergeant Relationship Specialty Start Date End Date Jolene Trujillo MD [address] [place] [address] PCP - General Family Medicine 12/06/17
== END 2024-06-24 07:49 | disposition home or self-care (01) ==
LOC: CHSIMG 07:52
PROVIDERS: PCP Family Medicine; Visit Provider Obstetrics & Gynecology
DX: Z12.31 Encounter for screening mammogram for malignant neoplasm of breast (principal)
CPT/HCPCS: 77063; 77067

== ENCOUNTER 2024-08-20 14:14 | Outpatient (CLI) | payer OTHER, SELFPAY ==
--- NOTE | ~2024-08-20 | US_ITS ---
Thyroid ultrasound. Clinical History: Hypothyroid Findings: Real-time sonography of the thyroid gland was performed. The right lobe measures 4.8 x 2.1 x 1.7 cm. The left lobe measures 4.2 x 1.7 x 1.3 cm. The isthmus is 4 mm in AP diameter. Thyroid parenchyma is diffusely heterogeneous, but without definite, discrete nodule. Impression: Heterogeneous thyroid parenchyma without discrete nodule.. Reviewed, dictated and finalized at [facility]. Impression: Heterogeneous thyroid parenchyma without discrete nodule..
== END 2024-08-20 14:15 | disposition home or self-care (01) ==
LOC: MICIMG 14:15
PROVIDERS: PCP Family Medicine; Visit Provider Nurse Practitioner Family
DX: E03.9 Hypothyroidism, unspecified (principal); E04.9 Nontoxic goiter, unspecified
CPT/HCPCS: 76536